=== PATIENT | male | born 1995 | race Caucasian/White ===

== ENCOUNTER 2018-02-02 15:06 | Emergency (ER) | payer BC, SELFPAY ==
[2018-02-02 15:08] VITALS: BP 139/81; PULSE 97; RESP 18; TEMP 37; O2SAT 100; BMI 24.3
--- NOTE | 2018-02-02 17:03 | ED.RN ---
called for pt, no answer.
== END 2018-02-02 17:26 | disposition left against medical advice (07) ==
LOC: ED 17:23
PROVIDERS: Emergency Provider Emergency Medicine; Family Provider Nurse Practitioner Family; PCP Nurse Practitioner Family
DX: L02.91 Cutaneous abscess, unspecified (principal)

== ENCOUNTER 2018-11-24 23:36 | Emergency (ER) | payer SELFPAY ==
[2018-11-24 23:37] VITALS: BP 125/74; PULSE 110; RESP 17; TEMP 36.7; O2SAT 97; BMI 26.5
--- NOTE | 2018-11-25 00:18 | ED.VISSUMM ---
- ER Visit Summary Date of Service: 11/25/18 Chief Complaint: Right hip pain History of Present Illness: The patient is a 23 M who presents with right hip pain. He complains of pain along the side of his right hip. This is worse with palpation. He did take Tylenol yesterday really without significant relief. Pain is been present for 2 days. It is sharp. He denies any fall or injury but does note that he has been moving a lot of stuff. No recent illness. No history of prior similar symptoms. Physical Examination: Afebrile vitals are unremarkable Heart regular rhythm Lungs clear Patient has pain on palpation over the lateral right hip in the area of the trochanteric bursa he has active full range of motion of the hip without pain he has normal sensation distally Test Results: Not indicated Emergency Department Course and Treatment: Patient's presentation is most consistent with trochanteric bursitis. He was advised on supportive care including ice and elevation. He was given a prescription for naproxen. He understands return for new or worsening symptoms all questions answered bedside and patient discharged. Treatment Plan: [] Disposition: Discharge Impression: Trochanteric bursitis This note was generated with [employer] dictation software. It may contain incorrect words, spelling, and punctuation that were not noted in review of the chart prior to signing ED Disposition - Plan for ED Patient: Chief Complaint: Lower Extremity Injury Referrals: NOT,DEFINED [Primary Care Provider] -
--- NOTE | 2018-11-25 00:19 | ED.DEP ---
ED Disposition - Plan for ED Patient: Chief Complaint: Lower Extremity Injury Instructions: What Is Bursitis? Prescriptions: Naproxen [Naprosyn] 500 mg PO BID #14 tab Referrals: NOT,DEFINED [Primary Care Provider] -
[2018-11-25] MEDS: Naproxen 500 MG Tablet PO (00:25)
[2018-11-25 00:26] VITALS: BP 119/86; PULSE 91; RESP 16; O2SAT 98
== END 2018-11-25 01:01 | disposition home or self-care (01) ==
LOC: ED 11-25 01:00
PROVIDERS: Emergency Provider Emergency Medicine
DX: M70.61 Trochanteric bursitis, right hip (principal)
CPT/HCPCS: 99283

== ENCOUNTER 2021-02-11 23:03 | Emergency (ER) | payer SELFPAY ==
[2021-02-11 23:05] VITALS: BP 141/86; PULSE 97; RESP 18; TEMP 36.1; O2SAT 96; BMI 27.7
--- NOTE | 2021-02-11 23:18 | EKG12_ITS ---
Test Reason : ABDOMINAL PAIN Blood Pressure : / mmHG Vent. Rate : 087 BPM Atrial Rate : 087 BPM P-R Int : 170 ms QRS Dur : 090 ms QT Int : 350 ms P-R-T Axes : 063 056 036 degrees QTc Int : 421 ms Normal sinus rhythm with sinus arrhythmia Normal ECG Confirmed by TELLY YEBOAH, INDRA ([id number]), supervising film or videotape editor PRISCILA DAMON ([id number]) on 02/15/2021 9:28:29 AM Referred By: IVONNE Confirmed By:INDRA VARNER MD
--- NOTE | 2021-02-11 23:19 | ED.VIS.GI ---
History of Present Illness Chief Complaint: Abd Pain Informant: Patient - Abdominal Pain/Flank Pain Onset: Today - around 4 hrs ago Context: Gradual Onset - at rest Timing: Continuous Quality: Sharp Location: Epigastric Current Severity: Moderate Maximum Severity: Moderate Worsened by: Nothing Relieved by: Nothing - tried Tylenol and alkaseltzer tabs - Nausea/Vomiting/Emesis GI Symptom: Nausea. Negative for: Vomiting - Diarrhea/Melena/Hematochezia GI Symptom: Negative for: Diarrhea, Melena, Hematochezia Associated Symptoms: Negative for: Dysuria, Frequency, Hematuria, Urgency Narrative: Sharp pain epigastrium for the last 4 hours, radiating up into chest more on the left side. No arm discomfort, back discomfort, no systemic symptoms, pleuritic discomfort, dyspnea, palpitations, dizziness. Has had normal bowel movements lately last 1 was earlier today, no difficulty getting bowel movements now. No difficulty urinating. States he has been taking ibuprofen around twice daily to help nonpleuritic chest discomfort that he had for the last week or 2, now resolved, diagnosed as pleurisy at [facility] when he was there. No melena or bright red blood per rectum, no vomiting but nauseated. Past Medical History - Allergies and Home Meds Allergies/Adverse Reactions: Allergies fluoxetine [From Prozac] Allergy (Verified 02/11/21 23:04) Roseann Primary Care Physician: Care Physician,No Primary [Primary Care Provider] - Surgical History: appendectomy, cholecystectomy Smoking Status: Current every day smoker Review of Systems General: Denies: Chills, Fever, Sweats Eyes: Denies: Visual changes - bilaterally, Diplopia ENT: Denies: Rhinorrhea, Sore throat Cardiovascular: Reports: Chest pain. Denies: Palpitations Respiratory: Denies: Dyspnea, Cough, Dyspnea on exertion Gastrointestinal: Reports: Abdominal pain, Nausea. Denies: Vomiting, Diarrhea, Melena, Hematochezia Genitourinary: Denies: Dysuria, Hematuria, Frequency Musculoskeletal: Denies: Back pain, Swelling, Extremity Pain Skin: Denies: Rash, Wounds Neurological: Denies: Headache, Weakness, Numbness Physical Exam Vital Signs/Narrative: Vital Signs Temp Pulse Resp BP Pulse Ox 02/11/21 23:05 97 F L 97 18 141/86 H 96 General: Well nourished, Well developed, No Acute Distress Head: Normocephalic, Atraumatic Eyes: Perrl, EOMI ENT: Moist mucous membranes, No rhinorrhea Neck: Supple, Nontender Cardiovascular: Regular rate, Regular rhythm, No murmurs Respiratory: No distress, CTA bilaterally, Chest nontender Abdomen: Soft, Nontender, Nondistended, Normal bowel sounds, No masses, Tender - epigastrium only. Negative for: Guarding, Rebound tenderness, Snyder's sign Back: Nontender, Normal Inspection. Negative for: CVA tenderness Extremities: Nontender, No edema. Negative for: Calf Tenderness Skin: Normal color, No rash, No Trauma. Negative for: Jaundice Neurological: Alert, Oriented x3, Cranial nerves II-XII grossly intact, Normal Strength, Normal Sensation, Normal Gait Psychological: Normal affect, Normal Mood Diagnostic/Tx/Re-eval Chest X-Ray - ED: 1 View, Read by ED Physician, Normal, Heart, Lungs, Mediastinum, Bony Structures, No Acute Disease, No Infiltrates 02/11/21 23:59 Chest 1 View (Portable) [RAD] Stat Laboratory Results 02/11/21 02/11/21 00:20 00:20 WBC 8.3 RBC 4.64 Hgb 14.5 Hct 43.8 MCV 94.4 H MCH 31.3 MCHC 33.1 RDW Std Deviation 44.6 H RDW Coeff of Nubia 12.9 Plt Count 237 MPV 10.4 Immature Gran % (Auto) 0.500 Neut % (Auto) 62.2 Lymph % (Auto) 24.8 [place] % (Auto) 9.5 Eos % (Auto) 2.4 Baso % (Auto) 0.6 Absolute Neuts (auto) 5.2 Absolute Lymphs (auto) 2.06 Nucleated RBC % 0 Sodium 140 Potassium 4.0 Chloride 107 Carbon Dioxide 27.0 Anion Gap 6 BUN 17 Creatinine 1.01 Estim Creat Clear Calc 124.16 Est GFR (MDRD) Af Amer 114 Est GFR (MDRD) Non-Af 94 BUN/Creatinine Ratio 16.8 Glucose 83 Calcium 8.8 Total Bilirubin 0.20 AST 50 H ALT 124 H Alkaline Phosphatase 50 Troponin I < 0.015 Total Protein 7.4 Albumin 3.7 Globulin 3.7 Albumin/Globulin Ratio 1.0 Lipase 113 - Rhythm Strip Rhythm Strip: Sinus Rhythm Rate: 87 Ectopy: None - EKG Initial EKG Interpretation: Sinus Rhythm, No Acute Injury Pattern - normal EKG Prior: Unchanged - Medical Decision Making Patient is well-appearing with epigastric pain and tenderness. His work-up shows 2 very slightly elevated liver enzymes, with the ALT twice AST. I asked him about alcohol use, he had some alcohol yesterday, and none other recently. He does not drink often. He has a normal bilirubin, white blood count, and everything else that he measured including his lipase is also normal. We discussed getting a CT but he refuses to have any contrast so we decided not to get one because I think it would be less useful without any contrast. He presents when ultrasound is not available. He had a prior cholecystectomy due to poor function, not stones and he certainly has no evidence of a biliary obstruction. My suspicion is that this is still GI/stomach/intestinal related pains and not necessarily liver, we discussed these possibilities, and other options including follow-up. He does not have a doctor. We gave him GI cocktail and Bentyl, he did not have any major relief from these but he does not have the chest discomfort anymore. He was given Toradol prior to discharge in addition to a prescription for PPI and referred to the next doctor on the unassigned list for follow-up. ED Disposition - Plan for ED Patient: Disposition: Home or Assisted Living Diagnosis: Epigastric abdominal pain Instructions: ED Epigastric Pain (Uncertain Cause) Prescriptions: Pantoprazole Sodium [Protonix] 40 mg PO DAILY #14 tab Prescription Printed Referrals: Bradford Gallardo MD [STAFF PHYSICIAN] - 3-5 Days if not improving
[2021-02-11] MEDS: Pantoprazole Sodium 40 MG Tablet PO (23:31)
[2021-02-11] MEDS: Dicyclomine 10 MG Capsule 20 MG PO (23:31)
[2021-02-11] MEDS: Mag Hydrox/Al Hydrox/Simeth 30 ML UDC PO (23:32)
[2021-02-11] MEDS: Ondansetron 4 MG/2 ML Vial IV (23:32)
--- NOTE | 2021-02-11 23:59 | RAD_ITS ---
STUDY: X-RAY CHEST REASON FOR EXAM: Male, 25 years old. Chest pain. TECHNIQUE: AP portable upright COMPARISON: 05/29/2017 CXR FINDINGS: No apparent pneumothorax, pneumonia, pleural effusion, or edema. Cardiac silhouette, tacos and mediastinal contours are within normal limits. No acute osseous abnormality. No evidence of free air under the diaphragm. RAD/Chest 1 View (Portable) IMPRESSION: Negative chest radiograph. Electronically Signed: Osorio Sanchez MD at 2:01 EDT Tel , Service support ,
[2021-02-12 00:27] LABS: Absolute Lymphocyte Count 2.06 X10^3/uL (0.83-4.51); Absolute Neutrophil Count 5.2 X10^3/uL (2.0-7.7); Basophil# 0.05 X10^3/uL; Basophil% 0.6 % (0-1); Eosinophils% 2.4 % (0-5); Hematocrit 43.8 % (40-54); Hemoglobin 14.5 g/dL (13.0-16.5); Lymphocyte # 2.06 X10^3/ul (4.0); Lymphocyte % 24.8 % (19-41); Mean Corp Hgb Conc 33.1 g/dL (32-36); Mean Corpuscular Hgb 31.3 pg (27.0-32.0); Mean Corpuscular Volume 94.4 fL (80-94); Mean Platelet Vol. 10.4 fl (6.2-12.0); Monocyte# 0.79 X10^3/uL; Monocyte% 9.5 % (0-10); NRBC Flagged by Analyzer 0 % (0-5); Neutrophil # 5.15 X10^3/uL (2.7-7.7); Neutrophil % 62.2 % (47-70); Platelet Count 237 K/mm3 (150-450); RBC Distribution Width CV 12.9 % (11.6-14.6); RBC Distribution Width SD 44.6 fl (35.1-43.9); Red Blood Count 4.64 M/mm3 (4.6-6.2); White Blood Count 8.3 K/mm3 (4.4-11.0)
[2021-02-12 00:46] LABS: AST(SGOT) 50 U/L (15-37); Alanine Aminotransfer ALT/SGPT 124 U/L (16-61); Albumin, Serum 3.7 g/dL (3.2-5.0); Alkaline Phosphatase 50 U/L (45-117); Anion Gap 6 (5-15); BUN 17 mg/dL (7-18); BUN/Creat Ratio 16.8 RATIO (10-20); Calcium,Total 8.8 mg/dL (8.5-10.1); Chloride 107 mmol/L (98-107); Creatinine, Serum 1.01 mg/dL (0.70-1.30); EST Glomerular Filtration Rate 94 mL/min (>60); Est Glom Filt Rate - Afr Amer 114 mL/min (>60); Estimated Creatinine Clearance 124.16 ml/min; Globulin 3.7 g/dL (2.2-4.2); Glucose 83 mg/dL (74-106); Lipase 113 U/L (73-393); Protein, Total 7.4 g/dL (6.4-8.2); Sodium Level 140 mmol/L (136-145)
[2021-02-12] MEDS: Ketorolac 15 MG/ML Vial IV (01:22)
[2021-02-12 01:23] VITALS: PULSE 94; RESP 16; O2SAT 98
[2021-02-12 01:28] VITALS: PULSE 84; RESP 17; TEMP 36.6; O2SAT 98
== END 2021-02-12 01:39 | disposition home or self-care (01) ==
PROVIDERS: Emergency Provider Emergency Medicine
DX: R10.13 Epigastric pain (principal); Z90.49 Acquired absence of other specified parts of digestive tract; F17.200 Nicotine dependence, unspecified, uncomplicated
CPT/HCPCS: 71045; 80053; 83690; 84484; 85025; 93005; 96374; 96375; 99284; A4216; J2405

== ENCOUNTER 2021-11-25 23:44 | Emergency (ER) | payer SELFPAY ==
[2021-11-25 23:45] VITALS: BP 137/86; PULSE 111; RESP 18; TEMP 36.4; O2SAT 94; BMI 28.3
--- NOTE | 2021-11-26 00:15 | ED.VIS.GI ---
HPI HPI - GI History of Present Illness Chief Complaint: Abd Pain Detail of Chief Complaint: Intermittent bilateral upper abdominal pain Informant: patient Abdominal Pain/Flank Pain Onset: Today Context: Sudden Onset Timing: Intermittent Quality: Sharp Location: - (Right and left costal margin region) Current Severity: Moderate Maximum Severity: Severe Worsened by: Nothing Relieved by: Nothing Nausea/Vomiting/Emesis GI Symptom: Positive for Nausea; Negative for Vomiting Quality: Negative for Nonbilious, Blood streaks, Coffee ground and Hematemesis Diarrhea/Melena/Hematochezia GI Symptom: Negative for Diarrhea, Melena and Hematochezia Associated Symptoms Associated Symptoms: Negative for Dysuria, Frequency and Hematuria Narrative Narrative: Patient is a 26-year-old male with history of laparoscopic cholecystectomy by Dr. Wesley Vegas and open appendectomy at outside facility who presents with intermittent bilateral upper abdominal pain that started approximate 1 hour prior to presentation. He states the pain is sharp. He does admit to smoking. He does admit to drinking on weekends. 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 He denies black or maroon-colored stool. He denies mucus or blood in the stool. He denies diarrhea. Denies change in consistency, color or caliber of his stool. He did have an EGD prior to cholecystectomy and was reported as negative. He states he had pain similar but not as severe. There is no history of pancreatitis. He denies respiratory symptoms. He denies radiation of the pain to his back. Prior similar symptoms: Yes Recent Illness/Hospitalization: No PFSH PFSH Medical History no medical history Home Medications buspirone [BuSpar] mg PO BID PRN 11/25/21 [History Last Taken Unknown] Allergy/AdvReac Type Severity Reaction Status Date / Time fluoxetine [From Prozac] Allergy Hives Verified 11/25/21 23:48 Iodinated Contrast Media Allergy Hives Verified 11/25/21 23:48 [DYEE] escitalopram [From Lexapro] AdvReac Other Verified 11/25/21 23:48 Surgical History (Updated 11/26/21 @ 00:[address] Pantera Jung MD) S/P appendectomy Status post laparoscopic cholecystectomy Social History (Updated 11/26/21 @ 00:[address] Pantera Jung MD) household members: significant other Smoking Status: Current every day smoker tobacco type: cigarettes alcohol intake: current alcohol intake frequency: other substance use type: does not use ROS ROS ED Constitutional Constitutional ED: Reports sweats and weight loss; Denies chills, fever(s) or subjective ENT ENT ED: Denies ear pain, rhinorrhea or sore throat Cardiovascular Cardiovascular: Denies chest pain, palpitations or racing heartbeat Respiratory/Chest Respiratory/Chest: Denies cough, dyspnea or dyspnea on exertion Gastrointestinal Gastrointestinal: Reports abdominal pain and nausea; Denies constipation, diarrhea, melena or vomiting Genitourinary Genitourinary ED: Denies dysuria, hematuria or urinary frequency Musculoskeletal Musculoskeletal: Denies arthralgias, back pain, myalgias or neck pain Integumentary Denies rash Neurologic Neurologic: Denies paresthesias or weakness Hematologic/Lymphatic Hematologic/Lymphatic: Denies easy bruising EXAM Physical Exam Const Vital Signs: 11/25/21 23:45 Temperature 97.6 F L Temperature Source Oral Pulse Rate 111 H Respiratory Rate 18 Blood Pressure 137/86 H Blood Pressure Mean 103 Pulse Ox 94 Oxygen Delivery Method Room Air Positive well nourished and well developed General Appearance ED: well developed and NAD; Negative for pallor HEENT Reports moist mucous membranes HEENT Narrative: Trachea midline. Ears are normal. normocephalic and atraumatic Eyes PERRL and EOMs intact bilaterally General Eye ED: Negative for pale conjunctiva or scleral icterus Neck no lymphadenopathy, supple and no JVD Resp normal respiratory effort and clear to auscultation bilaterally Cardio regular rate, regular rhythm, S1 normal heart sound, S2 normal heart sound and no murmurs GI non-distended and no masses Auscultation: normoactive bowel sounds Palpation: soft and tender other (Patient reports tenderness throughout. Scars for port site for cholecystectomy noted and scar for appendectomy noted.); Negative for hepatomegaly, splenomegaly or mass Back/Spine no CVA tenderness Extremity full ROM General Extremety ED: Negative for edema or tenderness General Extremity: Negative for edema Neuro CN's II-XII intact bilaterally and moves all extremities Sensorium / Orientation: alert, oriented to person, oriented to place and oriented to time Psych mental status grossly normal and thought process normal Skin no wounds General Skin Exam: Negative for jaundice or pallor Lesions: no lesions Rashes: no rashes MDM MDM MDM Narrative Medical decision making narrative: Patient presents with upper abdominal pain that started 1 hour prior to presentation. Patient does admit to consuming 2 alcoholic beverages. Of note his eyes are injected. Need to evaluate for abdominal pain of unknown etiology, alcoholic liver disease and pancreatitis. Appropriate blood work was obtained to evaluate for anemia, elevated liver enzymes and pancreatitis. Hep-Lock was placed per nursing staff. I was informed by his nurse at 0052 that he is removing his IV and going home. He refuses the GI cocktail. This occurred after I informed him of his laboratory results and asked/question if he had more than 2 glasses of wine since his alcohol level is 269. He was informed based on his weight that he had more than 2 glasses or 3 glasses of wine. Lab Data Attestation: I reviewed the patient's lab results. Lab results narrative: CBC is unremarkable. Comprehensive metabolic panel is remarkable for an elevated AST and ALT. This is probably due to alcohol.. Lipase is normal. Alcohol is 269, which is much higher than one would expect the patient only had 2 glasses of wine. Labs: Laboratory Results - last 24 hr 11/25/21 11/25/21 11/25/21 23:51 23:51 23:51 WBC 9.0 RBC 5.16 Hgb 15.7 Hct 47.3 MCV 91.7 MCH 30.4 MCHC 33.2 RDW Std Deviation 41.4 RDW Coeff of Nubia 12.3 Plt Count 274 MPV 10.9 Immature Gran % (Auto) 0.800 Neut % (Auto) 58.7 Lymph % (Auto) 30.4 [place] % (Auto) 8.6 Eos % (Auto) 0.8 Baso % (Auto) 0.7 Absolute Neuts (auto) 5.3 Absolute Lymphs (auto) 2.74 Nucleated RBC % 0 Sodium 142 Potassium 3.7 Chloride 110 H Carbon Dioxide 22.0 Anion Gap 10 BUN 9 Creatinine 1.02 Estim Creat Clear Calc 121.85 Est GFR (MDRD) Af Amer 112 Est GFR (MDRD) Non-Af 92 BUN/Creatinine Ratio 8.8 L Glucose 92 Calcium 9.2 Total Bilirubin 0.30 AST 61 H ALT 94 H Alkaline Phosphatase 51 Total Protein 8.4 H Albumin 4.0 Globulin 4.4 H Albumin/Globulin Ratio 0.9 Lipase 67 L Ethyl Alcohol 269.0 Discharge Plan Triage Chief Complaint: Abd Pain ED Provider: ErichPantera Dx/Rx/DC Orders Clinical Impression: Acute alcoholic liver disease, Alcohol intoxication, Acute bilateral upper abdominal pain Instructions: Tests for Liver Disease Prescriptions: No Action buspirone [BuSpar] 5 mg Tablet PO BID PRN (Reason: Anxiety) RF: 0 Primary Care Provider: Care Physician,No Primary Referrals: Ania Perea [NON-STAFF] - 3-5 Days if not improving Care Physician,No Primary [Primary Care Provider] - Disposition Disposition: Home, Self Care
[2021-11-26 00:17] LABS: Absolute Lymphocyte Count 2.74 X10^3/uL (0.83-4.51); Absolute Neutrophil Count 5.3 X10^3/uL (2.0-7.7); Basophil# 0.06 X10^3/uL; Basophil% 0.7 % (0-1); Eosinophil# 0.07 X10^3/uL; Eosinophils% 0.8 % (0-5); Hematocrit 47.3 % (40-54); Hemoglobin 15.7 g/dL (13.0-16.5); Lymphocyte # 2.74 X10^3/ul (0.83-4.51); Lymphocyte % 30.4 % (19-41); Mean Corp Hgb Conc 33.2 g/dL (32-36); Mean Corpuscular Hgb 30.4 pg (27.0-32.0); Mean Corpuscular Volume 91.7 fL (80-94); Mean Platelet Vol. 10.9 fl (6.2-12.0); Monocyte# 0.78 X10^3/uL; Monocyte% 8.6 % (0-10); NRBC Flagged by Analyzer 0 % (0-5); Neutrophil % 58.7 % (47-70); Platelet Count 274 K/mm3 (150-450); RBC Distribution Width CV 12.3 % (11.6-14.6); RBC Distribution Width SD 41.4 fl (35.1-43.9); Red Blood Count 5.16 M/mm3 (4.6-6.2)
[2021-11-26 00:41] LABS: ALB/GLOB Ratio 0.9 RATIO (0.9-2.4); AST(SGOT) 61 U/L (15-37); Alanine Aminotransfer ALT/SGPT 94 U/L (16-61); Alkaline Phosphatase 51 U/L (45-117); Anion Gap 10 (5-15); BUN 9 mg/dL (7-18); BUN/Creat Ratio 8.8 RATIO (10-20); Calcium,Total 9.2 mg/dL (8.5-10.1); Chloride 110 mmol/L (98-107); Creatinine, Serum 1.02 mg/dL (0.70-1.30); EST Glomerular Filtration Rate 92 mL/min (>60); Est Glom Filt Rate - Afr Amer 112 mL/min (>60); Estimated Creatinine Clearance 121.85 ml/min; Globulin 4.4 g/dL (2.2-4.2); Glucose 92 mg/dL (74-106); Lipase 67 U/L (73-393); Potassium 3.7 mmol/L (3.5-5.1); Protein, Total 8.4 g/dL (6.4-8.2); Sodium Level 142 mmol/L (136-145)
--- NOTE | 2021-11-26 00:54 | ED.RN ---
PT REFUSED THE GI COCKTAIL AND STATED,' I NORMALLY LIKE THE DOCTORS HERE ,BUT HE BASICALLY CALLED ME FAT AND I DID NOT DRINK MORE THAN 3 GLASSES OF WINE.' EMPATHY GIVEN AND EXPLAINED TO PT THAT HIS ALCHOL LEVEL IS HIGH AND THERE IS A FORMULA TO DETERMINE QUANITY OF CONSUMPTION.ASSURED HIM THAT THE DOCTOR WAS NOT CALLING HIM FAT WHEN HE WAS DISCUSSING HIS BMI.
[2021-11-26 01:00] VITALS: RESP 16
== END 2021-11-26 01:01 | disposition home or self-care (01) ==
PROVIDERS: Emergency Provider Emergency Medicine; Visit Provider Emergency Medicine
DX: K70.10 Alcoholic hepatitis without ascites (principal); F10.10 Alcohol abuse, uncomplicated; Y90.9 Presence of alcohol in blood, level not specified; F17.210 Nicotine dependence, cigarettes, uncomplicated; Z90.49 Acquired absence of other specified parts of digestive tract
CPT/HCPCS: 80053; 82077; 83690; 85025; 99284; A4216

== ENCOUNTER 2025-08-06 19:36 | Emergency (ER) | payer SELFPAY ==
[2025-08-06 19:38] VITALS: BP 163/94; PULSE 90; RESP 16; TEMP 36.6; O2SAT 100; BMI 28.9
--- NOTE | 2025-08-06 19:42 | CT_ITS ---
PROCEDURE: CT BRAIN/HEAD WITHOUT CONTRAST 08/06/2025 REASON FOR EXAM: NUMBNESS TECHNIQUE: Procedure Code: CTBR Modality: CT Procedure: BRAIN/HEAD WITHOUT CONTRAST Coronal and Sagittal reconstruction series were provided. One or more dose reduction techniques were used (e.g., Automated exposure control, adjustment of the mA and/or kV according to patient size, use of iterative reconstruction technique. RADIATION DOSE SUMMARY: CTDlvol: 44.99 mGy DLP: 829.85 mGycm COMPARISON: None. FINDINGS: No acute intracranial hemorrhage, extra-axial collection, mass effect or evidence of acute infarct. Ventricles and subarachnoid spaces are normal in size. Orbital contents are unremarkable. Intact skull base and calvarium. Clear paranasal sinuses and mastoid air cells. CT/Brain/Head without Contrast IMPRESSION: Unremarkable head CT. Reading Location: [facility]
[2025-08-06 20:39] LABS: Hematocrit 43.3 % (40-54); Hemoglobin 14.8 g/dL (13.0-16.5); Immature Granulocytes Count 0.030 X10^3/uL (0.0-0.0); Mean Corp Hgb Conc 34.2 g/dL (32-36); Mean Corpuscular Volume 95.2 fL (80-94); Mean Platelet Vol. 10.6 fl (6.2-12.0); NRBC Flagged by Analyzer 0 % (0-5); Platelet Count 225 K/mm3 (150-450); RBC Distribution Width CV 11.9 % (11.6-14.6); RBC Distribution Width SD 41.1 fl (35.1-43.9); Red Blood Count 4.55 M/mm3 (4.6-6.2); White Blood Count 8.2 K/mm3 (4.4-11.0)
--- OUTSIDE RECORDS SUMMARY | 2025-08-06 20:50 | XMS RPT_ITS | CCD ---
Author Organization [facility] Care Team Providers Care Pump Mechanic Name Role Phone TRISH WOMACK Unavailable Unavailable PHYSICIAN, NONE Unavailable Unavailable Nazario, Jon W Unavailable Unavailable Nazario, Jon W Unavailable Unavailable No Doctor Assigned, Nodr Unavailable Unavail able [place], Aurelia April Unavailable Unavailab le [place], Aurelia April Unavailable Unavailab le [place], Aurelia April Unavailable Unavailab le Thomae, Jitendra R Unavailable Unavailable [place], Aurelia April Unavailable Unavailab le [place], Aurelia April Unavailable Unavailab le [place], Aurelia April Unavailable Unavailab le [place]ae, Jitendra R Unavailable Unavailable [place], Aurelia April Unavailable Unavailab le [place], Aurelia April Unavailable Unavailab le [place], Aurelia April Unavailable Unavailab le [place], Aurelia April Unavailable Unavailab le [place], Aurelia April Unavailable Unavailab le [place], Aurelia April Unavailable Unavailab le [place], Aurelia April Unavailable Unavailab le Maximsdorf, Daxa A Unavailable Unavailab le [place], Aurelia April Unavailable Unavailab le [place], Aurelia April Unavailable Unavailab le [place], Aurelia April Unavailable Unavailab le [place], Aurelia April Unavailable Unavailab le [place], Aurelia April Unavailable Unavailab le [place], Aurelia April Unavailable Unavailab le [place], Aurelia April Unavailable Unavailab le [place], Aurelia April Unavailable Unavailab le [place], Aurelia April Unavailable Unavailab le [place], Aurelia April Unavailable Unavailab le [place], Aurelia April Unavailable Unavailab le Teo Beckman Unavailable Unavailable Karuna Teo Unavailable Unavailable [place], Aurelia April Unavailable Unavailab le Willett, Zeb Unavailable Unavailable Willett, Zeb Unavailable Unavailable [place], Aurelia April Unavailable Unavailab le Ivanauskas, Saulius Unavailable Unavailable Rachael, Saulius Unavailable Unavailable Kendrick YEBOAH, Dangelo Dexter Unavailable [phone] KINSEY MAZARIEGOS DO Attending Unavailable KINSEY MAZARIEGOS DO Primary Care Unavailable KINSEY MAZARIEGOS DO Admitting Unavailable Allergies Allergy Classification Reported Allergen(s) Allergy Type Date of Onset Reaction(s) Facility (3 sources) FLUoxetine; Translations: [PROzac] Drug Allergy 08-28-2017 [facility] Repository Medications Completed/Discontinued Medications Medication Drug Class(es) Dates Sig (Normalized) Sig (Original) pantoprazole 40 mg delayed release oral tablet (1 source) Proton Pump Inhibitor Start: 09-01-2017 take 1 tablet by mouth once daily PANTOPRAZOLE SODIUM 40 MG TBEC 1 tab daily PO PANTOPRAZOLE SODIUM [id number] Dangelo Marks MD sucralfate 1000 mg oral tablet (1 source) Aluminum Complex Start: 09-01-2017 CARAFATE 1 GM TABS 4 times PO per day, 1 tab before each meal and once before bed SUCRALFATE [id number] Dangelo Marks MD Problems Problem Classification Problem Date Documented Da te Episodic/Chronic Abdominal pain (1 source) Abdominal pain; Translations: [Unspecified abdominal pain] Onset: 08-28-2017 08-28-2017 Episodic Results Test Name Value Interpretation Reference Range Facility CBC + DIFFon 12-23-2024 Baso # 0.02 x10EE3/UL Normal 0.00 - 0.10 [facility] Comment on above: Performed By: #### 2 30732 #### [facility],[address] [place], [place] [id number] Basophils/100 WBC (Bld) 0.2 % Normal 0.0 - 2.0 [facility] Comment on above: Performed By: #### 2 45067 #### [facility],[address] [place] [address]608 CBC + DIFF [facility] Comment on above: Result Comment: CBC- COMPLETE BLOOD COUNT Performed By: #### 2 57927 #### [address] [address] EO # 0.21 x10EE3/UL Normal 0.00 - 0.50 [facility] Comment on above: Performed By: #### 2 71929 #### [place] [address] Eosinophils/100 WBC (Bld) 2.1 % Normal 0.0 - 7.0 [facility] Comment on above: Performed By: #### 2 25964 #### [place] [address] Erythrocyte distribution width (RBC) [Ratio] 12.7 % Normal 12.0 - 15.6 [facility] Comment on above: Performed By: #### 2 63463 #### [place] [address] Hematocrit (Bld) [Volume fraction] 46.7 % Normal 40.0 - 52.0 [facility] Comment on above: Performed By: #### 2 02977 #### [place] [address] Hemoglobin (Bld) [Mass/Vol] 15.7 g/dL Normal 13.0 - 17.5 [facility] Comment on above: Performed By: #### 2 06944 #### [place] [address] Lymph # 2.94 x10EE3/UL High 0.80 - 2.80 [facility] Comment on above: Performed By: #### 2 66192 #### [place] [address] Lymphocytes/100 WBC (Bld) 29.7 % Normal 20.0 - 45.0 [facility] Comment on above: Performed By: #### 2 49170 #### [place] [id number] MANUAL DIFF N/A [facility] Comment on above: Performed By: #### 2 48842 #### [facility],[address] [place] [address] MCH (RBC) [Entitic mass] 32 pg Normal 27 - 33 [facility] Comment on above: Performed By: #### 2 36082 #### [facility],[address] [place] [address] MCHC 34 X10 3 Normal 32 - 36 [facility] Comment on above: Performed By: #### 2 45320 #### [facility],[address] [place] [address] MCV (RBC) [Entitic vol] 95 fL Normal 81 - 98 [facility] Comment on above: Performed By: #### 2 41715 #### [facility],[address] [place] [address] Brantley # 0.98 x10EE3/UL Normal 0.20 - 1.00 [facility] Comment on above: Performed By: #### 2 99704 #### [facility],[address] [place] [address] MONOS % 9.9 % Normal 0.0 - 10.0 [facility] Comment on above: Performed By: #### 2 85156 #### [facility],[address] [place] [address] Morphology Jak (Bld) [Interp] N/A [facility] Comment on above: Performed By: #### 2 81484 #### [facility],[address] [place] [address] Neut # 5.77 x10EE3/UL Normal 1.50 - 7.10 [facility] Comment on above: Performed By: #### 2 60590 #### [facility],[address] [place] [address] Neutrophils/100 WBC (Bld) 58.2 % Normal 46.0 - 76.0 [facility] Comment on above: Performed By: #### 2 90129 #### [facility],[address] [place] [address]31 PLATELET 234 x10EE3/UL Normal 150 - 450 [facility] Comment on above: Performed By: #### 2 65944 #### [facility],[address] [place] [address] 24463 Platelet mean volume (Bld) [Entitic vol] 7.9 fL Normal 6.4 - 10.5 [facility] Comment on above: Result Comment: AUTO MATED DIFFERENTIAL Performed By: #### 2 03158 #### [facility],[address] [place] [address] 13091 RBC 4.93 x 10EE6/UL Normal 4.50 - 6.00 [facility] Comment on above: Performed By: #### 2 05775 #### [facility],[address] [place] [address]235 WBC 9.9 x 10EE3/UL Normal 4.5 - 10.8 [facility] Comment on above: Performed By: #### 2 54052 #### [facility],[address] [place] [address] 52752 CMP with eGFRon 12-23-2024 AGE 29 years [facility] Comment on above: Performed By: #### 2 76730 #### [facility],[address] [place] [address] 21686 Albumin [Mass/Vol] 3.9 g/dL Normal 3.4 - 5.0 [facility] Comment on above: Performed By: #### 2 54300 #### [facility],[address] [place] [address] 10843 Albumin/Globulin [Mass ratio] 1.0 {ratio} Normal 0.9 - 1.6 [facility] Comment on above: Performed By: #### 2 06222 #### [facility],[address] [place] [address] 22940 ALK PHOS 47 U/L Normal 46 - 116 [facility] Comment on above: Performed By: #### 2 21145 #### [facility],[address] [place] [address] 00051 ALT [Catalytic activity/Vol] 121 U/L High 16 - 63 [facility] Comment on above: Performed By: #### 2 76183 #### [facility],[address] [place] [address] 40596 Anion gap [Moles/Vol] 16 mmol/L Normal 10 - 20 [facility] Comment on above: Performed By: #### 2 21557 #### [facility],[address] [place] [address] 93144 AST [Catalytic activity/Vol] 36 U/L Normal 15 - 37 [facility] Comment on above: Performed By: #### 2 73918 #### [facility],[address] [place] [address] 28787 B/C RATIO 12 ratio Normal 0 - 30 [facility] Comment on above: Performed By: #### 2 82054 #### [facility],[address] [place] [address] 77452 Bilirubin [Mass/Vol] 0.5 mg/dL Normal 0.2 - 1.0 [facility] Comment on above: Performed By: #### 2 19533 #### [facility],[address] [place] [address] 02168 Calcium [Mass/Vol] 9.2 mg/dL Normal 8.5 - 10.1 [facility] Comment on above: Performed By: #### 2 42916 #### [facility],[address] [place] [address] 83583 Chloride [Moles/Vol] 102 mmol/L Normal 98 - 107 [facility] Comment on above: Performed By: #### 2 14608 #### [facility],[address] [place] [address] 09709 CMP with eGFR Normal [facility] Comment on above: Result Comment: COMP REHENSIVE METABOLIC PANEL Performed By: #### 2 54947 #### [facility],[address] [place], [place] [address] CO2 [Moles/Vol] 28.0 mmol/L Normal 21.0 - 32.0 [facility] Comment on above: Performed By: #### 2 82351 #### [facility],[address] [place], [place] [address] Creatinine [Mass/Vol] 1.11 mg/dL Normal 0.70 - 1.30 [facility] Comment on above: Performed By: #### 2 02306 #### [facility],[address] [place] [address] GFR/1.73 sq M.predicted among non-blacks MDRD (S/P/Bld) [Vol rate/Area] mL/min/{1.73_m2} Normal 60 - 999 [facility] Comment on above: Performed By: #### 2 81415 #### [facility],[address] [place] [address] Result Comment: ACCO RDING TO THE NATIONAL KIDNEY DISEASE EDUCATION PROGRAM(NKDE), A NORMAL eGFR IS A VALUE GREATER THAN OR EQUAL TO 60 ML/MIN/1.73 SQ METERS. CHRONIC KIDNEY DISEASE: <60mL/MIN/1.73 SQ METERS KIDNEY FAILURE: <15mL/MIN/1.73 SQ METERS THIS TEST SHOULD ONLY BE USED FOR PATIENTS 18 YEARS OF AGE AND OLDER. Globulin (S) [Mass/Vol] 4.0 g/dL High 1.5 - 3.8 [facility] Comment on above: Performed By: #### 2 86458 #### [facility],[address] [place], [place] [address] Glucose [Mass/Vol] 97 mg/dL Normal 74 - 106 [facility] Comment on above: Performed By: #### 2 06735 #### [facility],[address] [place] [address] 67219 Potassium [Moles/Vol] 4.0 mmol/L Normal 3.5 - 5.1 [facility] Comment on above: Performed By: #### 2 38888 #### [facility],[address] [place] [address] 12319 Protein [Mass/Vol] 7.9 g/dL Normal 6.4 - 8.2 [facility] Comment on above: Performed By: #### 2 38761 #### [facility],[address] [place] [address] 16781 Sodium [Moles/Vol] 142 mmol/L Normal 136 - 145 [facility] Comment on above: Performed By: #### 2 34658 #### [facility],[address] [place] [address] 61014 Urea nitrogen [Mass/Vol] 13 mg/dL Normal 7 - 18 [facility] Comment on above: Performed By: #### 2 16912 #### [facility],[address] [place] [address] BRAIN W/O CONTRASTon 0 CT BRAIN W/O CONTRAST [place] [address] Patient: SU LOVING Phone#: : 1995 Age: 29 Gender: M Pt. Type: ER Account: [id number] Location: [facility] Ordering: KINSEY MAZARIEGOS Exam Date: 12/23/2024/2:37 Family Phys: Charge Code: [id number] Physician: Candler Order #: [id number] Dose#: 52.3 PROCEDURE: CT BRAIN WITHOUT CONTRAST COMPARISON: None. INDICATIONS: Headache. TECHNIQUE: CT images were obtained without contrast material. All CT scans at this facility use dose modulation, iterative reconstruction, and/or weight based dosing when appropriate to reduce radiation dose to as low as reasonably achievable. IV CONTRAST: Omnipaque 350,60ml TOTAL DOSE: 52.3 CTDIvol(mGy) FINDINGS: CEREBRUM: No edema, hemorrhage, mass, or inappropriate atrophy. CEREBELLUM: No edema, hemorrhage, mass, or inappropriate atrophy. BRAINSTEM: No edema, hemorrhage, mass, or inappropriate atrophy. CSF SPACES: Ventricles, cisterns, and sulci are appropriate for age. No hydrocephalus, subarachnoid hemorrhage, or mass. SKULL: No mass or other significant visible lesion. SINUSES: Mild mucosal thickening in posterior left ethmoid air cells ORBITS: Limited views are unremarkable. OTHER: Negative. CONCLUSION: 1. No appreciable acute intracranial abnormality. 2. Mild mucosal thickening in posterior left ethmoid air cells Dictated by: Ruth Ann Nelson MD on 12/23/2024 at 9:53 Approved by: Ruth Ann Nelson MD on 12/23/2024 at 9:[address] [facility] [address] NECK W/CONTRASTon 025 CT NECK W/CONTRAST [place] [address] Patient: SU LOVING Phone#: : 1995 Age: 29 Gender: M Pt. Type: ER Account: [id number] Location: [facility] Ordering: KINSEY MAZARIEGOS Exam Date: 12/23/2024/2:37 Family Phys: Charge Code: [id number] Physician: Candler Order #: [id number] Dose#: 9.3 PROCEDURE: CT NECK WITH CONTRAST COMPARISON: None. INDICATIONS: Mass. TECHNIQUE: After obtaining the patient's consent, CT images were created with non-ionic intravenous contrast material. All CT scans at this facility use dose modulation, iterative reconstruction, and/or weight based dosing when appropriate to reduce radiation dose to as low as reasonably achievable. IV CONTRAST: Omnipaque 350,60ml TOTAL DOSE: 9.3 CTDIvol(mGy) FINDINGS: Dental amalgam streak artifact limits evaluation at the involved levels. NASOPHARYNX: Normal. Fossae of Rosenmuller and torus tubarius are symmetric. ORAL CAVITY: Normal. No visible mass. OROPHARYNX: Normal. Faucial and lingual tonsils are symmetric. HYPOPHARYNX: Normal. No mass or other visible lesion. LARYNX: Normal. The vocal cords are symmetric and without mass. SINUSES: Mucosal thickening in left posterior ethmoid air cell. Mild leftward deviation of the nasal septum. NECK GLANDS: Normal. The parotid, submandibular, and thyroid glands are unremarkable. LYMPH NODES: Normal. No pathological-appearing or enlarged lymph nodes. SKULL BASE: Normal. Foramina are symmetric without bony erosion. VASCULATURE: Normal. Limited views are unremarkable. BONES: Normal. No significant osseous lesions. OTHER: Normal. No additional imaging findings. CONCLUSION: 1. No mass, adenopathy, or fluid collection. Dictated by: Ruth Ann Nelson MD on 12/23/2024 at 9:58 Continued Report - Page 2 of 2 Patient: SU LOVING Phone#: : 1995 Age: 29 Gender: M Pt. Type: ER Account: [id number] Location: [facility] Ordering: KINSEY MAZARIEGOS Exam Date: 12/23/2024/2:37 Family Phys: Charge Code: [id number] Physician: [place]ler Order #: [id number] Dose#: 9.3 Approved by: Ruth Ann Nelson MD on 12/23/2024 at 10:12 [facility] ED MED ADMINISTRATION DETAIL on 12-23-2024 ED MED ADMINISTRATION DETAIL Supervisor Money Room Medication Administration Record [address] [address] [id number] 12/22/2024 Patient: SU LOVING Sex: Male : 1995 Age: 29y MEASUREMENTS: Wt: 90.7 kg, Ht/Paresh: 72.0 in, BMI: 27.12 ALLERGIES: Prozac Medication Ordered Medication Administration Date/Time Clindamycin IVPB 03:14 0206 Clindamycin IVPB 600mg/50ml Premix 600 mg started Started 600mg/50ml Premix at 100 mL/hr over 30 minute(s) via Site# 1. Allergies verified and 03:14 12/23/2024 600 mg at 100 confirmed 5 rights. IV patency established. IV site checked: no pain, Lakisha Rutt, R.N. mL/hr (NOW x1) redness, or swelling. IV flushed thoroughly pre-medication Stopped administration. Information reviewed with patient including reason 03:39 12/23/2024 for taking this medication. Verbalizes understanding. Completed per Lakisha Eckert R.N. protocol. - 03:15 Lakisha Eckert R.N. Scanned 03:39 02 Medication Discontinued: IV infused. Total amount infused: 100 mL. IV patency established. IV site checked: no pain, redness, or swelling. IV flushed thoroughly post-medication administration. - 04:04 Lakisha Eckert R.N. 1 of 2 Supervisor Money Room Medication Ordered Medication Administration Date/Time IV NS 0.9 % 1000 03:13 12/23 IV NS 0.9 % 1000 mL started in bag#1 1000 mL at Started mL at 999 mL/hr 999 mL/hr over 1 hour(s) via Site# 1. Allergies verified and 03:13 12/23/2024 (NOW x1) confirmed 5 rights. IV patency established. IV site checked: no pain, Lakisha Eckert R.N. redness, or swelling. IV flushed thoroughly pre-medication Stopped administration. Information reviewed with patient. Verbalizes 03:50 12/23/2024 understanding. Completed per protocol. - 03:14 Jenaro Odom R.N. Scanned 03:50 0206 Medication Discontinued: bag #1 infused upon discharge. Total amount infused: 1000 mL. IV patency established. IV site checked: no pain, redness, or swelling. IV flushed thoroughly post-medication administration. - 04:05 Lakisha Eckert R.N. Acetaminophen 03:33 12/23 Acetaminophen (Tylenol) PO 975 mg given. Allergies Given (Tylenol) PO 975 verified and confirmed 5 rights. Information reviewed with patient. 03:33 12/23/2024 mg (NOW x1) Verbalizes understanding. - 03:33 Jenaro Odom R.N. Scanned 04:05 12/23 Medication Response: Pain is improving. Symptoms have improved. The patient feels better. - 04:05 Lakisha Eckert R.N. 2 of 2 [facility] ED NURSES CLINICAL NOTEon ED NURSES CLINICAL NOTE Nurse Narrative Nurse Clinical Narrative [facility] [address] [place] [id number] 12/22/2024 Patient: SU LOVING Sex: Male : 1995 Age: 29y Disposition: Discharge to Home Disposition Decision Time: 03:47 12/23/2024 Departure Time: 04:21 12/23/2024 TRIAGE Arrived by private vehicle. Historian: (patient). Triage time: 23:29 12/22/2024. Acuity: LEVEL 3. Chief Complaint: SORE THROAT, TOOTHACHE and CHIPPED TOOTH and SWELLING OF JAW / FACE. Onset. (1 weeks ago). The patient has no dental appointment scheduled. The patient has had facial pain and ear pain. No fever, trouble handling secretions or sinus pain. The patient has had swelling of the face and a toothache. -- 23:46 12/22/24 JOE Branham R.N. 23:42 12/22/24. BP: 155/103 MAP: 120. HR: 70. RR: 18. Regular. O2 saturation: 95% Temperature: 99.2 F. Pain level now 6/10. Describes the pain as aching. -- 23:43 12/22/24 JOE Branham R.N. 23:47 12/22/24. SEPSIS SCREEN: NEGATIVE. SIRS criteria negative. No possible sources of infection. -- 23:47 12/22/24 JOE Branham R.N. Measurements: 23:40 12/22/24 Wt: 90.7 kg, Ht/Paresh: 72.0 in, BMI: 27.12 -- 23:40 12/22/24 JOE Branham R.N. Medications: no known home medications -- 04:00 12/23/24 EST Lakisha Eckert R.N. 1 of 4 Nurse Narrative Allergies: Prozac -- 23:45 12/22/24 JOE Branham R.N. Problems: no known problem -- 23:38 12/22/24 JOE Branham R.N. ADDITIONAL SURGERIES: Appendectomy -- 23:38 12/22/24 JOE Branham R.N. Gallbladder Surgery -- 23:45 12/22/24 JOE Branham R.N. History 23:29 12/22/24. SOCIAL HX: Light tobacco smoker- less than 1/2 a pack per day. Alcohol use; consumes two beers a week. No drug use. The patient has not traveled outside the [place] Infectious disease exposure: No infectious disease exposure. ABUSE ASSESSMENT: The patient answered yes to the question(s) Do you feel safe in your home? and no to the question(s) Are you afraid to go home?. SELF HARM ASSESSMENT: Self harm assessment was performed. The patient answered no to the question(s) Have you recently felt down, depressed, or hopeless? and Do you have thoughts of harming or killing yourself?. FALL RISK ASSESSMENT: Fall risk assessment completed. No risk factors identified. -- 23:46 12/22/24 JOE Branham R.N. Interventions 23:29 12/22/24. Advanced care plan. Patient does not have advanced directive. -- 23:46 12/22/24 JOE Branham R.N. PHYSICAL ASSESSMENT 2 of 4 Nurse Narrative 03:37 12/23/24. GENERAL / NEURO / PSYCH: Alert. Oriented X 4. Appears in no acute distress. HEENT: Voice within normal limits. Mouth within normal limits upon inspection. Moderate dental tenderness of a single tooth (left lower molar). ( Tooth is chipped and has been that way for quite awhile' per pt). Mucous membranes are pink. RESPIRATORY: Respirations not labored. CVS: Capillary refill less than 2 seconds. SKIN: Skin is warm and dry. Normal skin turgor. -- 04:02 12/23/24 JOE Eckert R.N. NURSING PROGRESS NOTES 02:39 12/23/24. Patient walked to CT with bioprocessing manufacturing technician. -- 02:54 12/23/24 JOE Eckert R.N. 02:49 12/23/24. Patient walked back from CT with bioprocessing manufacturing technician. -- 02:54 12/23/24 JOE Eckert R.N. 02:58 12/23/24. Site #1 started via IV in the right antecubital space with an 18g angiocath with aseptic technique and good blood return; 1 attempt. Blood drawn: rainbow set tube(s). Labeled in the presence of the patient and sent to the lab. Saline lock flushed with 5 mL saline. -- 03:08 12/23/24 JOE Eckert R.N. 03:13 12/23/24. IV NS 0.9 % 1000 mL started in bag#1 1000 mL at 999 mL/hr over 1 hour(s) via Site# 1. Allergies verified and confirmed 5 rights. IV patency established. IV site checked: no pain, redness, or swelling. IV flushed thoroughly pre-medication administration. Information reviewed with patient. Verbalizes understanding. Completed per protocol. -- 03:14 12/23/24 JOE Eckert R.N. 03:14 12/23/24. Clindamycin IVPB 600mg/50ml Premix 600 mg started at 100 mL/hr over 30 minute(s) via Site# 1. Allergies verified and confirmed 5 rights. IV patency established. IV site checked: no pain, redness, or swelling. IV flushed thoroughly pre-medication administration. Information reviewed with patient including reason for taking this medication. Verbalizes understanding. Completed per protocol. -- 03:15 12/23/24 JOE Eckert R.N. 03:33 12/23/24. Acetaminophen (Tylenol) PO 975 mg given. Allergies verified and confirmed 5 rights. Information reviewed with patient. Verbalizes understanding. -- 03:33 12/23/24 JOE Eckret R.N. 03:39 12/23/24. Clindamycin IVPB 600mg/50ml Premix: Medication Discontinued. IV infused. Total amount infused: 100 mL. IV patency established. IV s (more content not included)... [facility] ED ORDER SHEET ([facility] ONLY)on 12-23-2024 ED ORDER SHEET ([facility] ONLY) Order Sheet Order Sheet [address] [place] [address] [id number] 12/22/2024 Patient: SU LOVNIG Sex: Male : 1995 Age: 29y MEASUREMENTS: Wt: 90.7 kg, Ht/Paresh: 72.0 in, BMI: 27.12 ALLERGIES: Prozac MEDICATION/IV/DRIP/FLUI D ORDERS Order Description Priority Entered Acknowledged Completed Clindamycin IVPB 600mg/50ml 02:14 12/23/2024 02:28 03:15 [id number] mg at 100 mL/hr Kinsey Mazariegos D.O. 12/23/2024 12/23/2024 (NOW x1) Jenaro Odom R.N. IV NS 0.9 %1000 mL at 999 02:15 12/23/2024 02:28 03:14 mL/hr (NOW x1) Kinsey Mazariegos D.O. 12/23/2024 12/23/2024 Jenaro Odom R.N. Acetaminophen (Tylenol) 03:30 12/23/2024 03:30 03:33 PO975 mg (NOW x1) Kinsey Mazariegos D.O. 12/23/2024 12/23/2024 Jenaro Odom, R.NMissael LAB ORDERS Order Description Priority Entered Acknowledged Collected Completed CBC w Diff Stat Stat 02:12 12/23/2024 02:27 12/23/2024 02:28 12/23/2024 Shaunna Bryant R.N. Anne Rutt, R.N. CMP Stat Stat 02:12 12/23/2024 02:27 12/23/2024 02:28 12/23/2024 1 of 3 Order Sheet Shaunna Bryant R.N. Anne Rutt, R.NMissael EKG - ED Stat Stat 02:12 12/23/2024 02:27 12/23/2024 03:14 12/23/2024 Shaunna Bryant R.N. Anne Rutt R.NMissael Troponin-I Stat Stat 02:12 12/23/2024 02:27 12/23/2024 02:28 12/23/2024 Shaunna Bryant R.N. Anne Rutt, R.NMissael DIAGNOSTIC STUDY ORDERS Order Description Priority Entered Acknowledged Completed CT Brain wo Cont Stat Stat 02:13 12/23/2024 02:28 02:55 Kinsey Mazariegos D.O. 12/23/2024 12/23/2024 Jenaro Odom, Jenaro Reason for Study: Headache CT Soft Tissue Neck w Cont Stat 02:13 12/23/2024 02:28 02:55 Stat Kinsey Mazariegos D.O. 12/23/2024 12/23/2024 Jenaro Odom R.N. Reason for Study: Mass STAFF ORDERS Order Description Priority Entered Acknowledged Collected Completed Oxygen titrate to 92% 02:12 12/23/2024 02:27 12/23/2024 02:28 12/23/2024 Shaunna Bryant R.N. Anne Rutt, R.N. Radiator Mechanic 02:12 12/23/2024 02:27 12/23/2024 02:28 12/23/2024 Shaunna Bryant R.N. Anne Rutt, R.N. Vital signs every 15 02:12 12/23/2024 02:27 12/23/2024 02:28 12/23/2024 minutes Shaunna Bryant R.N. Anne Rutt, R.N. 2 of 3 Order Sheet [Electronically signed by Kinsey Mazariegos D.O. (12/23/2024 05:10 EST)] 3 of 3 [facility] ED PHYSICIAN CLINICAL REPORT on 12-23-2024 ED PHYSICIAN CLINICAL REPORT Narrative Physician Clinical Narrative [address] [address] [id number] 12/22/2024 Patient: SU LOVING Sex: Male : 1995 Age: 29y Disposition: Discharge to Home Disposition Decision Time: 03:47 12/23/2024 Departure Time: 04:21 12/23/2024 Measurements Wt: 90.7 kg, Ht/Paresh: 72.0 in, BMI: 27.12 Initial Vital Sign Measured Time BP MAP HR RR O2Sat ETCO2 Temp Pain GCS RTS 23:42 12/22/2024 155/103 120 70 18 95% 99.2 F 6 Time Seen: 01:42 12/23/2024. Arrived- By private vehicle. Historian- patient. Independent historian- family. HISTORY OF PRESENT ILLNESS Chief Complaint: DENTAL PAIN. This started yesterday and is still present (worse). Pain described as moderate. The patient has had a sore throat, toothache, jaw pain and ear pain. No mouth sores, nasal discharge or congestion or swollen jaw or face. No facial pain. (Complains of bilateral neck pain worse on the left today which became quite severe. Also complains of a throbbing headache. Feels like his throat is closing off. Shortness of breath earlier but not now. He did have some chest pain tonight from 7:30 p.m. to about 10:30 p.m.. Pain-free now. His left arm and is left leg were tingly at that time but that also happens with his anxiety attacks.). Similar symptoms previously. Patient has had similar symptoms several times. 1 of 10 Narrative Recent medical care: Not recently seen/assessed. REVIEW OF SYSTEMS EYES: No eye discomfort. MUSCULOSKELETAL: No joint pain. NEUROLOGICAL: The patient has had a headache. No fainting episodes. RESPIRATORY: No cough. The patient has had difficulty breathing. CVS: The patient has had chest pain. ENDO/HEME/LYMPH: No enlarged lymph nodes. CONSTITUTIONAL: No fever. GI: No nausea, diarrhea, abdominal pain or vomiting. SKIN: No skin rash. PAST HISTORY See nurses notes. no known problem Surgeries: Appendectomy Gallbladder Surgery Medications: no known home medications Allergies: Prozac SOCIAL HISTORY Heavy tobacco smoker- 1 pack per day. Occasional alcohol use. No drug use. ADDITIONAL NOTES The nursing notes have been reviewed. PHYSICAL EXAM Appearance: Alert. No acute distress. Head: Normal external inspection. Eyes: Pupils equal, round and reactive to light. 2 of 10 Narrative ENT: Moderate dental decay (lower left third molar). Dental tenderness. Pharynx normal. Lips normal. Gums normal. Uvula midline. (Left lower most posterior molar has a large section of the tooth broken off. The surrounding gum is mildly erythematous. I do not see any dental abscess. No drooling. No facial swelling noted.). Neck: Trachea midline. No adenopathy. (Neck is tender anteriorly along the left anterior cervical chain. I do not note any cervical lymphadenopathy. No skin redness or warmth. No crepitance or subcu emphysema.). CVS: Normal heart rate and rhythm. Heart sounds normal. Pulses normal. Respiratory: No respiratory distress. Breath sounds normal. Chest nontender. Abdomen: Soft and nontender. No organomegaly. Skin: Normal skin color. No rash. Extremities: Extremities exhibit normal ROM. Extremities nontender. Neuro: Oriented X 3. No motor deficit. No sensory deficit. LABS, X-RAYS, AND EKG 12-LEAD EKG: EKG time: 03:12 12/23/2024. Normal sinus rhythm. Rate: 64. Normal P waves. Normal QRS complex. Normal ST and T waves. The study has been interpreted contemporaneously by me. The EKG appears to be a good tracing. Interpretation time: 03:14 12/23/2024. CT Neck - Soft Tissue: No acute disease. (No focal airspace disease within the lung apices. The thyroid gland enhances homogeneous sleep. The submandibular glands are symmetric and unremarkable. Parotid glands appear very symmetric and unremarkable. There is mild leftward nasal septal deviation. Mild mucosal thickening is noted within the posterior ethmoid air cells. No parapharyngeal mass. No parapharyngeal abscess.). The study was interpreted by the radiologist. Interpretation time: 03:28 12/23/2024. CT Head: Normal study. No acute disease. (Brain volume is normal for age. No acute intracranial hemorrhage. No acute territorial infarct. No extra-axial collection of fluid is identified. No shift of midline structures. No acute calvarial fracture. Visualized mastoid air cells are clear. Minimal mucosal thickening noted within the posterior left ethmoid air cells.). The study was interpreted by the radiologist. Interpretation time: 03:29 12/23/2024. Laboratory Tests: CBC + DIFF Final LO: 12/23/2024 02:39:00 EST MsgRcvd: 12/23/2024 03:00 EST Lab Test Result Reference Status Received Comments 12/23/2024 03:00 CBC-COMPLETE CBC + DIFF Final EST BLOOD COUNT 3 of 10 Narrative Lab Test Result Reference Status Received Comments 12/23/2024 03:0 (more content not included)... [facility] ED SUPER BILLon 12-23-2024 ED SUPER BILL Superbill [address] [address] [id number] 12/22/2024 Patient: SU LOVING Sex: Male : 1995 Age: 29y Facility Professional Category Item Description Code Code Quantity Fee Total Drugs Normal Saline 545607 1 $0.00 $0.00 1000cc (376069) Nurse/E/M EMERGENCY 437883 1 $0.00 $0.00 DEPT VISIT HIGH SEVERITYFUNCJ (92502-14) Nurse/IV/IM/Infusions Drip/IVPB initial 440392 1 $0.00 $0.00 (73197) Grand $0.00 Total Providers Kinsey Mazariegos D.O. Chief Complaint DENTAL PAIN. Principal Diagnosis 1 of 2 Superbill Moderate dental pain. Dental caries. (Dental infection.). ICD-10 Codes K08.89: Other specified disorders of teeth and supporting structures K02.9: Dental caries, unspecified 2 of 2 [facility] ED VISIT SUMMARYon ED VISIT SUMMARY Visit Overview Visit Overview [address] [address] [id number] 12/22/2024 Patient: SU LOVING Sex: Male : 1995 Age: 29y 12/23/2024 05:10 AM EST ED Arrival:22:44 12/22/2024 EST Status: Recent Travel:no Language:eng Adv Directive:No Isolation Status: Ethnicity:N Fall Risk:no risk Infectious Disease Exposure:no Measurements:6' / 182.9 Self-Harm Status:risk Sepsis Screen:negative cm 200.0 lb / 90.7 kg Chief Complaint: TOOTHACHE, CHIPPED TOOTH, SORE THROAT, SWELLING OF JAW / FACE, and (1 weeks ago) ALLERGIES Prozac HOME MEDICATIONS None PAST MEDICAL HISTORY / PROBLEMS None 1 of 3 Visit Overview See nurses notes PAST SURGICAL HISTORY Appendectomy Gallbladder Surgery SOCIAL HISTORY Smoking status: Yes Alcohol use: Yes Drug use: No ED COURSE MEDICATIONS GIVEN IN EMERGENCY DEPARTMENT 03:13 12/23/24 IV NS 0.9 % 1000 mL 999 mL/hr over 1 hour(s) 03:14 12/23/24 Clindamycin IVPB 600mg/50ml Premix 600 mg 100 mL/hr over 30 minute(s) 03:33 12/23/24 Acetaminophen (Tylenol) PO 975 mg IV SITE INFORMATION INTAKE OUTPUT REASSESMENT (most recent) 03:37 12/23/24. GENERAL / NEURO / PSYCH: Alert. Oriented X 4. Appears in no acute distress. HEENT: Voice within normal limits. Mouth within normal limits upon inspection. Moderate dental tenderness of a single tooth (left lower molar). ( Tooth is chipped and has been that way for quite awhile' per pt). Mucous membranes are pink. RESPIRATORY: Respirations not labored. CVS: Capillary refill less than 2 seconds. SKIN: Skin is warm and dry. Normal skin turgor. VITAL SIGNS First Vitals Last Vitals Temp 23:42 12/22/24 99.2 F Temp 23:42 12/22/24 99.2 F BP 23:42 12/22/24 155/103 BP 23:42 12/22/24 155/103 HR 23:42 12/22/24 70 HR 23:42 12/22/24 70 2 of 3 Visit Overview First Vitals Last Vitals RR 23:42 12/22/24 18 RR 23:42 12/22/24 18 O2 Sat 23:42 12/22/24 95% O2 Sat 23:42 12/22/24 95% Pain 23:42 12/22/24 6 Pain 23:42 12/22/24 6 ETCO2 23:42 12/22/24 ETCO2 23:42 12/22/24 GCS 23:42 12/22/24 GCS 23:42 12/22/24 RTS 23:42 12/22/24 RTS 23:42 12/22/24 PROCEDURES NURSING INTERVENTIONS LABS / STUDIES LABS / STUDIES ORDERED CBC w Diff CMP CT Brain wo Cont CT Soft Tissue Neck w Cont EKG - ED Troponin-I CLINICAL IMPRESSION DENTAL CARIES MODERATE DENTAL PAIN 3 of 3 [facility] ED VITALS FLOW SHEETon 12-23 ED VITALS FLOW SHEET Vitals Vital Sign Flow Sheet [facility] [address] [place] [address] [id number] 12/22/2024 Patient: SU LOVING [facility]#: [id number] Sex: Male : 1995 Age: 29y Measurements Wt: 90.7 kg, Ht/Paresh: 72.0 in, BMI: 27.12 Measured Time BP MAP HR RR O2Sat ETCO2 Temp Pain GCS RTS 23:42 12/22/2024 155/103 120 70 18 95% 99.2 F 6 1 of 1 [facility] TROPONINon 12-23-2024 HS TROPONIN 4.4 pg/mL Normal 0.0 - 76.2 [facility] Comment on above: Performed By: #### 2 [id number] #### [facility],[address] [address] Alcohol, Blood (Medical)-Ser umon 11-26-2021 SERUM ETOH 269.0 mg/dL Normal [facility] Comment on above: Result Comment: The serum:whole blood ethanol ratio is approximately 1.14 and varies slightly with hematocrit. Medical Alcohol reference interval and critical value in non-tolerant individuals; 50 - 100 Impairment 100 Intoxication 100 - 250 Severe Poisoning 250 - 400 Deep/possible fatal coma Performed By: #### L 100.0100, L501.2450, L500.4050, L501.9100 #### [facility] [address] [place], [address] CBC W/Diff, Automatedon 11-17 Absolute Lymph 2.74 X10 3/uL Normal 0.83-4.51 [facility] Comment on above: Performed By: #### L 100.0100, L501.2450, L500.4050, L501.9100 #### [facility] [address] [place], [address] Absolute Neut 5.3 X10 3/uL Normal 2.0-7.7 [facility] Comment on above: Performed By: #### L 100.0100, L501.2450, L500.4050, L501.9100 #### [facility] [address] [place], [address] Basophils/100 WBC (Bld) 0.7 % Normal 0-1 [facility] Comment on above: Performed By: #### L 100.0100, L501.2450, L500.4050, L501.9100 #### [facility] [address] [place], [address] Eosinophils/100 WBC (Bld) 0.8 % Normal 0-5 [facility] Comment on above: Performed By: #### L 100.0100, L501.2450, L500.4050, L501.9100 #### [facility] [address] [place], [address] Erythrocyte distribution width (RBC) [Ratio] 12.3 % Normal 11.6-14.6 [facility] Comment on above: Performed By: #### L 100.0100, L501.2450, L500.4050, L501.9100 #### [facility] [address] [place], [address] Hematocrit (Bld) [Volume fraction] 47.3 % Normal 40-54 [facility] Comment on above: Performed By: #### L 100.0100, L501.2450, L500.4050, L501.9100 #### [facility] [address] [place], [address] Hemoglobin (Bld) [Mass/Vol] 15.7 g/dL Normal 13.0-16.5 [facility] Comment on above: Performed By: #### L 100.0100, L501.2450, L500.4050, L501.9100 #### [facility] [address] [place], [address] IG% 0.800 Normal 0.0-0.9 [facility] Comment on above: Result Comment: IG% - Immature Granulocytes (promyelocytes, myelocytes and metamyelocytes) > 1% indicates that a LEFT SHIFT is Present. Performed By: #### L 100.0100, L501.2450, L500.4050, L501.9100 #### [facility] [address] [place], [address] Lymphocytes/100 WBC (Bld) 30.4 % Normal 19-41 [facility] Comment on above: Performed By: #### L 100.0100, L501.2450, L500.4050, L501.9100 #### [facility] [address] [place], [address] MCH (RBC) [Entitic mass] 30.4 pg Normal 27.0-32.0 [facility] Comment on above: Performed By: #### L 100.0100, L501.2450, L500.4050, L501.9100 #### [facility] [address] [place], [address] MCHC (RBC) [Mass/Vol] 33.2 g/dL Normal 32-36 [facility] Comment on above: Performed By: #### L 100.0100, L501.2450, L500.4050, L501.9100 #### [facility] [address] [place], [address] MCV (RBC) [Entitic vol] 91.7 fL Normal 80-94 [facility] Comment on above: Performed By: #### L 100.0100, L501.2450, L500.4050, L501.9100 #### [facility] [address] [place], [address] Monocytes/100 WBC (Bld) 8.6 % Normal 0-10 [facility] Comment on above: Performed By: #### L 100.0100, L501.2450, L500.4050, L501.9100 #### [facility] [address] [place], [address] Neutrophils/100 WBC (Bld) 58.7 % Normal 47-70 [facility] Comment on above: Performed By: #### L 100.0100, L501.2450, L500.4050, L501.9100 #### [facility] [address] [place], [address] Nucleated RBC (Bld) [#/Vol] 0 10*3/uL Normal 0-5 [facility] Comment on above: Performed By: #### L 100.0100, L501.2450, L500.4050, L501.9100 #### [facility] [address] [place], [address] Platelet mean volume (Bld) [Entitic vol] 10.9 fL Normal 6.2-12.0 [facility] Comment on above: Performed By: #### L 100.0100, L501.2450, L500.4050, L501.9100 #### [facility] [address] [place], [address] Platelets (Bld) [#/Vol] 274 10*3/uL Normal 150-450 [facility] Comment on above: Performed By: #### L 100.0100, L501.2450, L500.4050, L501.9100 #### [facility] [address] [place], [address] RBC (Bld) [#/Vol] 5.16 10*6/uL Normal 4.6-6.2 [facility] Comment on above: Performed By: #### L 100.0100, L501.2450, L500.4050, L501.9100 #### [facility] [address] [place], [address] RDW SD 41.4 fl Normal 35.1-43.9 [facility] Comment on above: Performed By: #### L 100.0100, L501.2450, L500.4050, L501.9100 #### [facility] [address] [place], [address] WBC (Bld) [#/Vol] 9.0 10*3/uL Normal 4.4-11.0 [facility] Comment on above: Performed By: #### L 100.0100, L501.2450, L500.4050, L501.9100 #### [facility] [address] [place], [address] Comprehensive Metabolic Prof ilon 11-26-2021 Albumin [Mass/Vol] 4.0 g/dL Normal 3.2-5.0 [facility] Comment on above: Performed By: #### L 100.0100, L501.2450, L500.4050, L501.9100 #### [facility] [address] [place], [address] Albumin/Globulin [Mass ratio] 0.9 {ratio} Normal 0.9-2.4 [facility] Comment on above: Performed By: #### L 100.0100, L501.2450, L500.4050, L501.9100 #### [facility] [address] [place], [address] ALK P 51 U/L Normal 45-117 [facility] Comment on above: Performed By: #### L 100.0100, L501.2450, L500.4050, L501.9100 #### [facility] [address] [place], [address] ALT [Catalytic activity/Vol] 94 U/L High 16-61 [facility] Comment on above: Performed By: #### L 100.0100, L501.2450, L500.4050, L501.9100 #### [facility] [address] [place], [address] AST [Catalytic activity/Vol] 61 U/L High 15-37 [facility] Comment on above: Performed By: #### L 100.0100, L501.2450, L500.4050, L501.9100 #### [facility] [address] [place], [address] Bilirubin [Mass/Vol] 0.30 mg/dL Normal 0.20-1.00 [facility] Comment on above: Result Comment: For patients on eltrombopag therapy, use of Dimension Alpine TBIL is not recommended. Performed By: #### L 100.0100, L501.2450, L500.4050, L501.9100 #### [facility] [address] [place], [address] BUN/CRE 8.8 RATIO Low 10-20 [facility] Comment on above: Performed By: #### L 100.0100, L501.2450, L500.4050, L501.9100 #### [facility] [address] [place], [address] CA,Total 9.2 mg/dL Normal 8.5-10.1 [facility] Comment on above: Performed By: #### L 100.0100, L501.2450, L500.4050, L501.9100 #### [facility] [address] [place], [address] Chloride [Moles/Vol] 110 mmol/L High 98-107 [facility] Comment on above: Performed By: #### L 100.0100, L501.2450, L500.4050, L501.9100 #### [facility] [address] [place], [address] CO2 [Moles/Vol] 22.0 mmol/L Normal 21.0-32.0 [facility] Comment on above: Performed By: #### L 100.0100, L501.2450, L500.4050, L501.9100 #### [facility] [address] [place], [address] Creatinine [Mass/Vol] 1.02 mg/dL Normal 0.70-1.30 [facility] Comment on above: Result Comment: The validity of the calculated GFR GFRAA in patients over 70 years has not been determined. Clinical correlation is essential. Performed By: #### L 100.0100, L501.2450, L500.4050, L501.9100 #### [facility] [address] [place], [address] ECRCL 121.85 ml/min Normal [facility] Comment on above: Performed By: #### L 100.0100, L501.2450, L500.4050, L501.9100 #### [facility] [address] [place], [address] EST GFR - AA 112 mL/min Normal >60 [facility] Comment on above: Result Comment: Afri can [place] GFR Calc Performed By: #### L 100.0100, L501.2450, L500.4050, L501.9100 #### [facility] [address] [place], [address] GAP 10 Normal 5-15 [facility] Comment on above: Performed By: #### L 100.0100, L501.2450, L500.4050, L501.9100 #### [facility] [address] [place], [address] GFR/1.73 sq M.predicted among non-blacks MDRD (S/P/Bld) [Vol rate/Area] 92 mL/min/{1.73_m2} Normal >60 [facility] Comment on above: Result Comment: Non- GFR Calc Performed By: #### L 100.0100, L501.2450, L500.4050, L501.9100 #### [facility] [address] [place], [address] Globulin (S) [Mass/Vol] 4.4 g/dL High 2.2-4.2 [facility] Comment on above: Performed By: #### L 100.0100, L501.2450, L500.4050, L501.9100 #### [facility] [address] [place], [address] Glucose [Mass/Vol] 92 mg/dL Normal 74-106 [facility] Comment on above: Result Comment: Mervat ferrari note revised GLUCOSE reference range effective 2017. Performed By: #### L 100.0100, L501.2450, L500.4050, L501.9100 #### [facility] [address] [place], [address] Potassium [Moles/Vol] 3.7 mmol/L Normal 3.5-5.1 [facility] Comment on above: Performed By: #### L 100.0100, L501.2450, L500.4050, L501.9100 #### [facility] [address] [place], [address] Sodium [Moles/Vol] 142 mmol/L Normal 136-145 [facility] Comment on above: Performed By: #### L 100.0100, L501.2450, L500.4050, L501.9100 #### [facility] [address] [place], [address] T PROT 8.4 g/dL High 6.4-8.2 [facility] Comment on above: Performed By: #### L 100.0100, L501.2450, L500.4050, L501.9100 #### [facility] [address] [place], [address] Urea nitrogen [Mass/Vol] 9 mg/dL Normal 7-18 [facility] Comment on above: Performed By: #### L 100.0100, L501.2450, L500.4050, L501.9100 #### [facility] [address] [place], [address] Emergency Department Summary on 11-26-2021 Emergency Department Summary [facility] Medical Records Department [address] [place] [address] Emergency Department Summary 11/26/21 MR#: [id number] Acct: [id number] Name: SU LOVING Rep #: [id number] : 1995 26 From: Pantera Jung MD PCP: Care Physician,No Primary Status:REG ER Location: ED HPI HPI - GI History of Present Illness Chief Complaint: Abd Pain Detail of Chief Complaint: Intermittent bilateral upper abdominal pain Informant: patient Abdominal Pain/Flank Pain Onset: Today Context: Sudden Onset Timing: Intermittent Quality: Sharp Location: - (Right and left costal margin region) Current Severity: Moderate Maximum Severity: Severe Worsened by: Nothing Relieved by: Nothing Nausea/Vomiting/Emesis GI Symptom: Positive for Nausea; Negative for Vomiting Quality: Negative for Nonbilious, Blood streaks, Coffee ground and Hematemesis Diarrhea/Melena/Hematoc hezia GI Symptom: Negative for Diarrhea, Melena and Hematochezia Associated Symptoms Associated Symptoms: Negative for Dysuria, Frequency and Hematuria Narrative Narrative: Patient is a 26-year-old male with history of laparoscopic cholecystectomy by Dr. Wesley Vegas and open appendectomy at outside facility who presents with intermittent bilateral upper abdominal pain that started approximate 1 hour prior to presentation. He states the pain is sharp. He does admit to smoking. He does admit to drinking on weekends. 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 He denies black or maroon-colored stool. He denies mucus or blood in the stool. He denies diarrhea. Denies change in consistency, color or caliber of his stool. He did have an EGD prior to cholecystectomy and was reported as negative. He states he had pain similar but not as severe. There is no history of pancreatitis. He denies respiratory symptoms. He denies radiation of the pain to his back. Prior similar symptoms: Yes Recent Illness/Hospitalization : No PFSH PFSH Medical History no medical history Home Medications buspirone [BuSpar] mg PO BID PRN 11/25/21 [History Last Taken Unknown] Allergy/AdvReac Type Severity Reaction Status Date / Time fluoxetine [From Prozac] Allergy Hives Verified 11/25/21 23:48 Iodinated Contrast Media Allergy Hives Verified 11/25/21 23:48 [DYEE] escitalopram [From Lexapro] AdvReac Other Verified 11/25/21 23:48 Surgical History (Updated 11/26/21 @ 00:[address] Pantera Jung MD) S/P appendectomy Status post laparoscopic cholecystectomy Social History (Updated 11/26/21 @ 00:[address] Pantera Jung MD) household members: significant other Smoking Status: Current every day smoker tobacco type: cigarettes alcohol intake: current alcohol intake frequency: other substance use type: does not use ROS ROS ED Constitutional Constitutional ED: Reports sweats and weight loss; Denies chills, fever(s) or subjective ENT ENT ED: Denies ear pain, rhinorrhea or sore throat Cardiovascular Cardiovascular: Denies chest pain, palpitations or racing heartbeat Respiratory/Chest Respiratory/Chest: Denies cough, dyspnea or dyspnea on exertion Gastrointestinal Gastrointestinal: Reports abdominal pain and nausea; Denies constipation, diarrhea, melena or vomiting Genitourinary Genitourinary ED: Denies dysuria, hematuria or urinary frequency Musculoskeletal Musculoskeletal: Denies arthralgias, back pain, myalgias or neck pain Integumentary Denies rash Neurologic Neurologic: Denies paresthesias or weakness Hematologic/Lymphatic Hematologic/Lymphatic: Denies easy bruising EXAM Physical Exam Const Vital Signs: 11/25/21 23:45 Temperature 97.6 F L Temperature Source Oral Pulse Rate 111 H Respiratory Rate 18 Blood Pressure 137/86 H Blood Pressure Mean 103 Pulse Ox 94 Oxygen Delivery Method Room Air Positive well nourished and well developed General Appearance ED: well developed and NAD; Negative for pallor HEENT Reports moist mucous membranes HEENT Narrative: Trachea midline. Ears are normal. normocephalic and atraumatic Eyes PERRL and EOMs intact bilaterally General Eye ED: Negative for pale conjunctiva or scleral icterus Neck no lymphadenopathy, supple and no JVD Resp normal respiratory effort and clear to auscultation bilaterally Cardio regular rate, regular rhythm, S1 normal heart sound, S2 normal heart sound and no murmurs GI non-distended and no masses Auscultation: normoactive bowel sounds Palpation: soft and tender other (Patient reports tenderness throughout. Scars for port site for cholecystectomy noted and scar for appendectomy noted.); Negative for hepatomegaly, splenomegaly or mass Back/Spine no CVA tenderness Extremity full ROM General Extremety ED: Negative for edema or tenderness General Extremity: Negative for edema Neuro CN's II-XII intact bilatera (more content not included)... Normal [facility] Lipaseon 11-26-2021 Lipase [Catalytic activity/Vol] 67 U/L Low 73-393 [facility] Comment on above: Performed By: #### L 100.0100, L501.2450, L500.4050, L501.9100 #### [facility] [address] [place], [address] 12 Lead EKGon 02-12-2021 12 Lead EKG [facility] [address] [place] [address] 12 Lead EKG 02/11/21 2336 MR#: [id number] Acct: [id number] Name: SU LOVING Rep #: [id number] : 1995 25 From: Homero Varner MD Attending Dr: Status: DEP ER Ordering Dr: Jas Steve MD Date: 02/11/21 Location: ED Sex: M C Admitted: Test Reason : ABDOMINAL PAIN Blood Pressure : / mmHG Vent. Rate : 087 BPM Atrial Rate : 087 BPM P-R Int : 170 ms QRS Dur : 090 ms QT Int : 350 ms P-R-T Axes : 063 056 036 degrees QTc Int : 421 ms Normal sinus rhythm with sinus arrhythmia Normal ECG Confirmed by TELLY YEBOAH, HOMERO ([id number]), online editor PRISCILA DAMON ([id number]) on 02/15/2021 9:28:29 AM Referred By: IVONNE Confirmed By:HOMERO VARNER MD 02/15/2128 Date Homero Varner MD CC: No Primary Care Physician; Dr. Jas Steve MD Signed Normal [facility] CBC W/Diff, Automatedon 03-2 Absolute Lymph 2.06 X10 3/uL Normal 0.83-4.51 [facility] Comment on above: Performed By: #### L 100.0100, L501.4010, L501.2450, L500.4050 #### [facility] [address] [place], [address] Absolute Neut 5.2 X10 3/uL Normal 2.0-7.7 [facility] Comment on above: Performed By: #### L 100.0100, L501.4010, L501.2450, L500.4050 #### [facility] [address] [place], [address] Basophils/100 WBC (Bld) 0.6 % Normal 0-1 [facility] Comment on above: Performed By: #### L 100.0100, L501.4010, L501.2450, L500.4050 #### [facility] [address] [place], [address] Eosinophils/100 WBC (Bld) 2.4 % Normal 0-5 [facility] Comment on above: Performed By: #### L 100.0100, L501.4010, L501.2450, L500.4050 #### [facility] [address] [place], [address] Erythrocyte distribution width (RBC) [Ratio] 12.9 % Normal 11.6-14.6 [facility] Comment on above: Performed By: #### L 100.0100, L501.4010, L501.2450, L500.4050 #### [facility] [address] [place], [address] Hematocrit (Bld) [Volume fraction] 43.8 % Normal 40-54 [facility] Comment on above: Performed By: #### L 100.0100, L501.4010, L501.2450, L500.4050 #### [facility] [address] [place], [address] Hemoglobin (Bld) [Mass/Vol] 14.5 g/dL Normal 13.0-16.5 [facility] Comment on above: Performed By: #### L 100.0100, L501.4010, L501.2450, L500.4050 #### [facility] [address] [place], [address] IG% 0.500 Normal 0.0-0.9 [facility] Comment on above: Result Comment: IG% - Immature Granulocytes (promyelocytes, myelocytes and metamyelocytes) > 1% indicates that a LEFT SHIFT is Present. Performed By: #### L 100.0100, L501.4010, L501.2450, L500.4050 #### [facility] [address] [place], [address] Lymphocytes/100 WBC (Bld) 24.8 % Normal 19-41 [facility] Comment on above: Performed By: #### L 100.0100, L501.4010, L501.2450, L500.4050 #### [facility] [address] [place], [address] MCH (RBC) [Entitic mass] 31.3 pg Normal 27.0-32.0 [facility] Comment on above: Performed By: #### L 100.0100, L501.4010, L501.2450, L500.4050 #### [facility] [address] [place], [address] MCHC (RBC) [Mass/Vol] 33.1 g/dL Normal 32-36 [facility] Comment on above: Performed By: #### L 100.0100, L501.4010, L501.2450, L500.4050 #### [facility] [address] [place], [address] MCV (RBC) [Entitic vol] 94.4 fL High 80-94 [facility] Comment on above: Performed By: #### L 100.0100, L501.4010, L501.2450, L500.4050 #### [facility] [address] [place], [address] Monocytes/100 WBC (Bld) 9.5 % Normal 0-10 [facility] Comment on above: Performed By: #### L 100.0100, L501.4010, L501.2450, L500.4050 #### [facility] [address] [place], [address] Neutrophils/100 WBC (Bld) 62.2 % Normal 47-70 [facility] Comment on above: Performed By: #### L 100.0100, L501.4010, L501.2450, L500.4050 #### [facility] [address] [place], [address] Nucleated RBC (Bld) [#/Vol] 0 10*3/uL Normal 0-5 [facility] Comment on above: Performed By: #### L 100.0100, L501.4010, L501.2450, L500.4050 #### [facility] [address] [place], [address] Platelet mean volume (Bld) [Entitic vol] 10.4 fL Normal 6.2-12.0 [facility] Comment on above: Performed By: #### L 100.0100, L501.4010, L501.2450, L500.4050 #### [facility] [address] [place], [address] Platelets (Bld) [#/Vol] 237 10*3/uL Normal 150-450 [facility] Comment on above: Performed By: #### L 100.0100, L501.4010, L501.2450, L500.4050 #### [facility] [address] [place], [address] RBC (Bld) [#/Vol] 4.64 10*6/uL Normal 4.6-6.2 [facility] Comment on above: Performed By: #### L 100.0100, L501.4010, L501.2450, L500.4050 #### [facility] [address] [place], [address] RDW SD 44.6 fl High 35.1-43.9 [facility] Comment on above: Performed By: #### L 100.0100, L501.4010, L501.2450, L500.4050 #### [facility] [address] [place], [address] WBC (Bld) [#/Vol] 8.3 10*3/uL Normal 4.4-11.0 [facility] Comment on above: Performed By: #### L 100.0100, L501.4010, L501.2450, L500.4050 #### [facility] [address] [place], [address] Chest 1 View (Portable)on Chest 1 View (Portable) [facility] Imaging Services [address] [place] [address] Chest 1 View (Portable) MR#: [id number] Acct: [id number] Name: SU LOVING Rep #: [id number] : 1995 M 25 From: Osorio Hidalgo PCP: Care Physician, No Primary Status: [facility] ER Study: Chest 1 View (Portable) Date of Exam: 02/11/21 Exam# [id number] Ordering Dr: Jas Steve MD STUDY: X-RAY CHEST REASON FOR EXAM: Male, 25 years old. Chest pain. TECHNIQUE: AP portable upright COMPARISON: 05/29/2017 CXR FINDINGS: No apparent pneumothorax, pneumonia, pleural effusion, or edema. Cardiac silhouette, tacos and mediastinal contours are within normal limits. No acute osseous abnormality. No evidence of free air under the diaphragm. RAD/Chest 1 View (Portable) IMPRESSION: Negative chest radiograph. Electronically Signed: Osorio Sanchez MD at 2:01 EDT Tel , Service support , CC: No Primary Care Physician; Dr. Jas Steve MD Remote Sensing Advisor: Signed Normal [facility] Comprehensive Metabolic Prof ilon 02-12-2021 Albumin [Mass/Vol] 3.7 g/dL Normal 3.2-5.0 [facility] Comment on above: Performed By: #### L 100.0100, L501.4010, L501.2450, L500.4050 #### [facility] [address] [place], [address] Albumin/Globulin [Mass ratio] 1.0 {ratio} Normal 0.9-2.4 [facility] Comment on above: Performed By: #### L 100.0100, L501.4010, L501.2450, L500.4050 #### [facility] [address] [place], [address] ALK P 50 U/L Normal 45-117 [facility] Comment on above: Performed By: #### L 100.0100, L501.4010, L501.2450, L500.4050 #### [facility] [address] [place], [address] ALT [Catalytic activity/Vol] 124 U/L High 16-61 [facility] Comment on above: Performed By: #### L 100.0100, L501.4010, L501.2450, L500.4050 #### [facility] [address] [place], [address] AST [Catalytic activity/Vol] 50 U/L High 15-37 [facility] Comment on above: Performed By: #### L 100.0100, L501.4010, L501.2450, L500.4050 #### [facility] [address] [place], [address] Bilirubin [Mass/Vol] 0.20 mg/dL Normal 0.20-1.00 [facility] Comment on above: Result Comment: For patients on eltrombopag therapy, use of Dimension Alpine TBIL is not recommended. Performed By: #### L 100.0100, L501.4010, L501.2450, L500.4050 #### [facility] [address] [place], [address] BUN/CRE 16.8 RATIO Normal 10-20 [facility] Comment on above: Performed By: #### L 100.0100, L501.4010, L501.2450, L500.4050 #### [facility] [address] [place], [address] CA,Total 8.8 mg/dL Normal 8.5-10.1 [facility] Comment on above: Performed By: #### L 100.0100, L501.4010, L501.2450, L500.4050 #### [facility] [address] [place], [address] Chloride [Moles/Vol] 107 mmol/L Normal 98-107 [facility] Comment on above: Performed By: #### L 100.0100, L501.4010, L501.2450, L500.4050 #### [facility] [address] [place], [address] CO2 [Moles/Vol] 27.0 mmol/L Normal 21.0-32.0 [facility] Comment on above: Performed By: #### L 100.0100, L501.4010, L501.2450, L500.4050 #### [facility] [address] [place], [address] Creatinine [Mass/Vol] 1.01 mg/dL Normal 0.70-1.30 [facility] Comment on above: Result Comment: The validity of the calculated GFR GFRAA in patients over 70 years has not been determined. Clinical correlation is essential. Performed By: #### L 100.0100, L501.4010, L501.2450, L500.4050 #### [facility] [address] [place], [address] ECRCL 124.16 ml/min Normal [facility] Comment on above: Performed By: #### L 100.0100, L501.4010, L501.2450, L500.4050 #### [facility] [address] [place], [address] EST GFR - AA 114 mL/min Normal >60 [facility] Comment on above: Result Comment: Afri can [place] GFR Calc Performed By: #### L 100.0100, L501.4010, L501.2450, L500.4050 #### [facility] [address] [place], [address] GAP 6 Normal 5-15 [facility] Comment on above: Performed By: #### L 100.0100, L501.4010, L501.2450, L500.4050 #### [facility] [address] [place], [address] GFR/1.73 sq M.predicted among non-blacks MDRD (S/P/Bld) [Vol rate/Area] 94 mL/min/{1.73_m2} Normal >60 [facility] Comment on above: Result Comment: Non- GFR Calc Performed By: #### L 100.0100, L501.4010, L501.2450, L500.4050 #### [facility] [address] [place], [address] Globulin (S) [Mass/Vol] 3.7 g/dL Normal 2.2-4.2 [facility] Comment on above: Performed By: #### L 100.0100, L501.4010, L501.2450, L500.4050 #### [facility] [address] [place], [address] Glucose [Mass/Vol] 83 mg/dL Normal 74-106 [facility] Comment on above: Result Comment: Mervat ferrari note revised GLUCOSE reference range effective 2017. Performed By: #### L 100.0100, L501.4010, L501.2450, L500.4050 #### [facility] [address] [place], [address] Potassium [Moles/Vol] 4.0 mmol/L Normal 3.5-5.1 [facility] Comment on above: Performed By: #### L 100.0100, L501.4010, L501.2450, L500.4050 #### [facility] [address] [place], [address] Sodium [Moles/Vol] 140 mmol/L Normal 136-145 [facility] Comment on above: Performed By: #### L 100.0100, L501.4010, L501.2450, L500.4050 #### [facility] [address] [place], [address] T PROT 7.4 g/dL Normal 6.4-8.2 [facility] Comment on above: Performed By: #### L 100.0100, L501.4010, L501.2450, L500.4050 #### [facility] [address] [place], [address] Urea nitrogen [Mass/Vol] 17 mg/dL Normal 7-18 [facility] Comment on above: Performed By: #### L 100.0100, L501.4010, L501.2450, L500.4050 #### [facility] [address] [place], [address] Emergency Department Summary on 02-12-2021 Emergency Department Summary [facility] Medical Records Department [address] [place] [address] Emergency Department Summary 02/11/21 MR#: [id number] Acct: [id number] Name: SU LOVING Rep #: [id number] : 1995 25 From: Jas Steve MD PCP: Care Physician, No Primary Status:REG ER History of Present Illness Chief Complaint: Abd Pain Informant: Patient - Abdominal Pain/Flank Pain Onset: Today - around 4 hrs ago Context: Gradual Onset - at rest Timing: Continuous Quality: Sharp Location: Epigastric Current Severity: Moderate Maximum Severity: Moderate Worsened by: Nothing Relieved by: Nothing - tried Tylenol and alkaseltzer tabs - Nausea/Vomiting/Emesis GI Symptom: Nausea. Negative for: Vomiting - Diarrhea/Melena/Hematoc hezia GI Symptom: Negative for: Diarrhea, Melena, Hematochezia Associated Symptoms: Negative for: Dysuria, Frequency, Hematuria, Urgency Narrative: Sharp pain epigastrium for the last 4 hours, radiating up into chest more on the left side. No arm discomfort, back discomfort, no systemic symptoms, pleuritic discomfort, dyspnea, palpitations, dizziness. Has had normal bowel movements lately last 1 was earlier today, no difficulty getting bowel movements now. No difficulty urinating. States he has been taking ibuprofen around twice daily to help nonpleuritic chest discomfort that he had for the last week or 2, now resolved, diagnosed as pleurisy at [facility] when he was there. No melena or bright red blood per rectum, no vomiting but nauseated. Past Medical History - Allergies and Home Meds Allergies/Adverse Reactions: Allergies fluoxetine [From Prozac] Allergy (Verified 02/11/21 23:04) Hives Primary Care Physician: Care Physician,No Primary [Primary Care Provider] - Surgical History: appendectomy, cholecystectomy Smoking Status: Current every day smoker Review of Systems General: Denies: Chills, Fever, Sweats Eyes: Denies: Visual changes - bilaterally, Diplopia ENT: Denies: Rhinorrhea, Sore throat Cardiovascular: Reports: Chest pain. Denies: Palpitations Respiratory: Denies: Dyspnea, Cough, Dyspnea on exertion Gastrointestinal: Reports: Abdominal pain, Nausea. Denies: Vomiting, Diarrhea, Melena, Hematochezia Genitourinary: Denies: Dysuria, Hematuria, Frequency Musculoskeletal: Denies: Back pain, Swelling, Extremity Pain Skin: Denies: Rash, Wounds Neurological: Denies: Headache, Weakness, Numbness Physical Exam Vital Signs/Narrative: Vital Signs Temp Pulse Resp BP Pulse Ox 02/11/21 23:05 97 F L 97 18 141/86 H 96 General: Well nourished, Well developed, No Acute Distress Head: Normocephalic, Atraumatic Eyes: Perrl, EOMI ENT: Moist mucous membranes, No rhinorrhea Neck: Supple, Nontender Cardiovascular: Regular rate, Regular rhythm, No murmurs Respiratory: No distress, CTA bilaterally, Chest nontender Abdomen: Soft, Nontender, Nondistended, Normal bowel sounds, No masses, Tender - epigastrium only. Negative for: Guarding, Rebound tenderness, Snyder's sign Back: Nontender, Normal Inspection. Negative for: CVA tenderness Extremities: Nontender, No edema. Negative for: Calf Tenderness Skin: Normal color, No rash, No Trauma. Negative for: Jaundice Neurological: Alert, Oriented x3, Cranial nerves II-XII grossly intact, Normal Strength, Normal Sensation, Normal Gait Psychological: Normal affect, Normal Mood Diagnostic/Tx/Re-eval Chest X-Ray - ED: 1 View, Read by ED Physician, Normal, Heart, Lungs, Mediastinum, Bony Structures, No Acute Disease, No Infiltrates 02/11/21 23:59 Chest 1 View (Portable) [RAD] Stat Laboratory Results 02/11/21 02/11/21 00:20 00:20 WBC 8.3 RBC 4.64 Hgb 14.5 Hct 43.8 MCV 94.4 H MCH 31.3 MCHC 33.1 RDW Std Deviation 44.6 H RDW Coeff of Nubia 12.9 Plt Count 237 MPV 10.4 Immature Gran % (Auto) 0.500 Neut % (Auto) 62.2 Lymph % (Auto) 24.8 Brantley % (Auto) 9.5 Eos % (Auto) 2.4 Baso % (Auto) 0.6 Absolute Neuts (auto) 5.2 Absolute Lymphs (auto) 2.06 Nucleated RBC % 0 Sodium 140 Potassium 4.0 Chloride 107 Carbon Dioxide 27.0 Anion Gap 6 BUN 17 Creatinine 1.01 Estim Creat Clear Calc 124.16 Est GFR (MDRD) Af Amer 114 Est GFR (MDRD) Non-Af 94 BUN/Creatinine Ratio 16.8 Glucose 83 Calcium 8.8 Total Bilirubin 0.20 AST 50 H ALT 124 H Alkaline Phosphatase 50 Troponin I < 0.015 Total Protein 7.4 Albumin 3.7 Globulin 3.7 Albumin/Globulin Ratio 1.0 Lipase 113 - Rhythm Strip Rhythm Strip: Sinus Rhythm Rate: 87 Ectopy: None - EKG Initial EKG Interpretation: Sinus Rhythm, No Acute Injury Pattern - normal EKG Prior: Unchanged - Medical Decision Making Patient is well-appearing with epigastric pain and tenderness. His work-up shows 2 very slightly e (more content not included)... Normal [facility] Lipaseon 02-12-2021 Lipase [Catalytic activity/Vol] 113 U/L Normal 73-393 [facility] Comment on above: Performed By: #### L 100.0100, L501.4010, L501.2450, L500.4050 ####[facility] [address] [place], [address] Troponin-Ion 02-12-2021 Troponin I.cardiac [Mass/Vol] ng/mL Normal <0.045 [facility] Comment on above: Result Comment: TROP ONIN-I EXPECTED VALUES <0.045 Negative 0.045 - 0.590 Consistent with Cardiac Damage > OR = 0.600 Critical Value Not every elevated troponin is indicative of ND. These values should be used with clinical judgement in examining the patient's clinical picture for diagnosis. To establish a diagnosis of ND versus myocardial injury, there must be a demonstrated rise and/or fall in the troponin values, in addition to ischemic symptoms, EKG changes, new regional wall motion abnormality, and/or angiographical evidence. PLEASE NOTE: REFERENCE RANGES EDITED 18 Performed By: #### L 100.0100, L501.4010, L501.2450, L500.4050 ####[facility] [address] [place], [address] PROGRESSon 11-29-2019 PROGRESS HNO ID: [id number] Author: Rae SiddiqiOd) Blanca Service: ? Author Type: STRATIGRAPHER Type: Progress Notes Filed: 11/29/2019 1:40 PM Note Text: ASSESSMENT/PLAN: 1. Hyperopia, bilateral - ICD9: 367.0, ICD10: H52.03 (primary diagnosis) 2. 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 Examination of eyes and vision - ICD9: V72.0, ICD10: Z01.00 Suggested wearing glasses as desired. Recommended yearly exams. Rae Rios, OD I have confirmed and edited as necessary the relevant ophthalmic history, ROS, and the neuro exam findings as obtained by others. I have seen and examined this patient. I have discussed the case and the management of this patient's care with the Resident/Fellow, if applicable. I also have reviewed and agree with the assessment and plan as stated above and agree with all of its relevant components. Normal [facility] Auto Diffon 11-15-2017 Basophils Auto #/vol (Bld) 0.0 E3/mcL Normal 0.0-0.2 [facility] Comment on above: Order Comment: Order Added by Discern Expert. Performed By: #### 2 [id number] ####HORACE [address] [place] [address] Basophils/100 WBC Auto (Bld) 0.7 % Normal 0.0-2.0 [facility] Comment on above: Order Comment: Order Added by Discern Expert. Performed By: #### 2 838842 ####HORACE [address] [place] [address] Eos Absolute 0.2 E3/mcL Normal 0.0-0.7 [facility] Comment on above: Order Comment: Order Added by Discern Expert. Performed By: #### 2 170839 ####HORACE [address] [place] [address] Eosinophils/100 leukocytes 3.9 % Normal 0.0-11.0 [facility] Comment on above: Order Comment: Order Added by Discern Expert. Performed By: #### 2 807254 ####H[address]ACE [address] [place] [address] Lymphocytes 2.0 E3/mcL Normal 1.2-3.4 [facility] Comment on above: Order Comment: Order Added by Discern Expert. Performed By: #### 2 368807 ####H[address]ACE [address] [place] [address] Lymphocytes/100 leukocytes 35.7 % Normal 20.0-55.0 [facility] Comment on above: Order Comment: Order Added by Discern Expert. Performed By: #### 2 480609 ####HORACE [address] [place] [address] Brantley Absolute 0.6 E3/mcL Normal 0.0-0.7 [facility] Comment on above: Order Comment: Order Added by Discern Expert. Performed By: #### 2 607678 ####HORACE [address] [place] [address] Monocytes/100 leukocytes 11.1 % High 0.0-10.0 [facility] Comment on above: Order Comment: Order Added by Discern Expert. Performed By: #### 2 308179 ####H[address]ACE [address] [place] [address] Neutro Absolute 2.7 E3/mcL Normal 1.4-6.5 [facility] Comment on above: Order Comment: Order Added by Discern Expert. Performed By: #### 2 341966 ####HORACE [address] [place] [address] Neutro Auto 48.6 % Normal 37.0-75.0 [facility] Comment on above: Order Comment: Order Added by Discern Expert. Performed By: #### 2 156002 ####HORACE [address] [place] [address] BMPon 11-15-2017 BUN/Creatinine Ratio 12.0 ratio Normal 5.4-30.0 [facility] Comment on above: Performed By: #### 2 225324 ####HORACE [address] [place] [address] Creatinine 1.0 mg/dL Normal 0.6-1.3 [facility] Comment on above: Performed By: #### 2 960642 ####HORACE [address] [place] [address] Urea nitrogen 12 mg/dL Normal 7-18 [facility] Comment on above: Performed By: #### 2 719910 ####HORACE [address] [place] [address] Calcium 9.1 mg/dL Normal 8.4-10.2 [facility] Comment on above: Performed By: #### 2 857275 ####HORACE [address] [place] [address] Chloride 104 mmol/L Normal 98-107 [facility] Comment on above: Performed By: #### 2 878666 ####HORACE [address] [place] [address] CO2 27.9 mmol/L Normal 24.0-30.0 [facility] Comment on above: Performed By: #### 2 776419 ####HORACE [address] [place] [address] Glucose mass conc 85 mg/dL Normal 70-99 [facility] Comment on above: Performed By: #### 2 714012 ####HORACE [address] [place] [address] Potassium molar conc 3.8 mmol/L Normal 3.5-5.1 [facility] Comment on above: Performed By: #### 2 165513 ####HORACE [address] [place] [address] Sodium 137 mmol/L Normal 136-145 [facility] Comment on above: Performed By: #### 2 174686 ####HORACE [address] [place] [address] CBC w/ Auto Diffon 7 Erythrocyte distribution width Auto Ratio (RBC) 13.6 % Normal 11.5-14.5 [facility] Comment on above: Performed By: #### 2 787306 ####HORACE [address] [place] [address] Erythrocytes (RBC) 4.76 E6/mcL Normal 3.90-6.[address] [facility] Comment on above: Performed By: #### 2 404835 ####HORACE [address] [place] [address] Hematocrit (HCT) 41.9 % Low 42.0-52.0 [facility] Comment on above: Performed By: #### 2 062702 ####HORACE [address] [place] [address] Hemoglobin mass conc (Bld) 13.9 g/dL Normal 13.5-18.0 [facility] Comment on above: Performed By: #### 2 803152 ####HORACE [address] [place] [address] MCH 29.2 pg Normal 27.0-31.0 [facility] Comment on above: Performed By: #### 2 308910 ####HORACE [address] [place] [address] MCHC mass conc (RBC) 33.2 g/dL Normal 33.0-37.0 [facility] Comment on above: Performed By: #### 2 110545 ####HORACE [address] [place] [address] MCV 88.0 fL Normal 78.0-100.0 [facility] Comment on above: Performed By: #### 2 690341 ####HORACE [address] [place] [address] Platelet mean volume (PMV) 9.2 fL Normal 7.4-11.0 [facility] Comment on above: Performed By: #### 2 232010 ####HORACE [address] [place] [address] Platelets 175 E3/mcL Normal 130-400 [facility] Comment on above: Performed By: #### 2 563095 ####HORACE [address] [place] [address] WBC (Leukocytes) 5.5 E3/mcL Normal 3.6-11.0 [facility] Comment on above: Performed By: #### 2 841606 ####HORACE [address] [place] [id number] Hep Func Panelon 12-30-2017 Alanine aminotransferase (ALT) 22 Int._Unit/L Normal 10-40 [facility] Comment on above: Performed By: #### 2 969401 ####HORACE [address] [place] [address] Albumin 4.1 g/dL Normal 3.2-5.0 [facility] [facility] Comment on above: Performed By: #### 2 [id number] ####HORACEDenae ArceFybYhao7614 [place] [id number] Albumin/Globulin Ratio 1.3 {ratio} Normal 1.1-1.9 [facility] Comment on above: Performed By: #### 2 842691 ####HORACEDenae ArceUxbZqqb1222 [place] [address] Alk Phos 38 Int._Unit/L Low 42-121 [facility] Comment on above: Performed By: #### 2 018461 ####HORACEDenae ArceZvrXwce9023 [place] 3615405 Aspartate aminotransferase (AST) 17 Int._Unit/L Normal 10-42 [facility] Comment on above: Performed By: #### 2 839931 ####HORACE YnfIlkn8634 [place] [address] Bili Direct <.10 Normal .00-.20 [facility] Comment on above: Performed By: #### 2 695844 ####HORACEDenae ArceYbgLgqa6603 [place] [address] Bili Indirect >0.4 Normal [facility] Comment on above: Result Comment: No e stablished ranges available for the Indirect Biliruben. Performed By: #### 2 190568 ####HORACEDenae ArceHrwRdnn0988 [place] [address] Bili Total 0.5 mg/dL Normal 0.2-1.0 [facility] Comment on above: Performed By: #### 2 450215 ####HORACEDenae DelaneyIyxWmow0604 [place] [address] Globulin 3.1 g/dL Normal 2.0-4.0 [facility] Comment on above: Performed By: #### 2 707855 ####HORACEDenae ArceNqfLguv4795 [place] [address] Protein 7.2 g/dL Normal 6.4-8.3 [facility] Comment on above: Performed By: #### 2 363413 ####HORACE QayCrto0749 [place] [address] Lipase Levelon 11-15-2017 Lipase Lvl 16 U/L Normal 8-57 [facility] Comment on above: Performed By: #### 2 574903 ####HORACE QglKhjg9086 [place] [address] UA Completeon 11-15-2017 UA Blood Negative Normal Negative [facility] Comment on above: Performed By: #### 2 859692 ####HORACEDeane ArceLkfLbkb8685 [place] [address] UA Bacteria Trace Abnormal None [facility] Comment on above: Performed By: #### 2 558390 ####HORACE OmkAdhm2912 [place] [address] UA Clarity Clear Normal Clear [facility] Comment on above: Performed By: #### 2 326501 ####HORACE VhhLfvc9656 [place] [address] UA Leuk Est Negative Normal Negative [facility] Comment on above: Performed By: #### 2 361841 ####HORACE XifQjcz5077 [place] [address] UA Mucous Moderate Abnormal Trace [facility] Comment on above: Performed By: #### 2 822240 ####HORACEDenae ArceGtzVhfc5160 [place] [address] UA Nitrite Negative Normal Negative [facility] Comment on above: Performed By: #### 2 511324 ####HORACE HpiLbcy6821 [place] [address] UA pH 6.0 Normal 4.6-8.0 [facility] Comment on above: Performed By: #### 2 410752 ####HORACE FajUgqt3981 [place] [address] UA Protein Negative Normal Negative [facility] Comment on above: Performed By: #### 2 017838 ####HORACEDenae ArceFhhYzgr2850 [place] [address] UA Spec Grav 1.030 Normal 1.003-1.030 [facility] Comment on above: Performed By: #### 2 456780 ####HORACE JpqOlyb8529 [place] [address] UA Urobilinogen 2.0 mg/dL Abnormal [facility] Comment on above: Performed By: #### 2 114193 ####HORACE CrcUhze2862 [place] [address] UA WBC 0-5 Normal 0-5 [facility] Comment on above: Performed By: #### 2 855067 ####HORACE HnyPchg0476 [place] [address] Urine, color Yellow Normal Yellow [facility] Comment on above: Performed By: #### 2 975314 ####HORACEDenae ArceRxkVtxt1957 [place] [address] Urine, erythrocytes 0-3 Normal 0-[address] [facility] Comment on above: Performed By: #### 2 461603 ####HORACEDenae ArceLvrBcwk8155 [place] [address] Urine, glucose Negative Normal Negative [facility] Comment on above: Performed By: #### 2 175939 ####HORACE QxaMpjy8492 [place] [address] Urine, ketones presence Negative Normal Negative [facility] Comment on above: Performed By: #### 2 446499 ####HORACE EhjKksf9834 [place] [address] Urine, urobilinogen Negative Normal Negative [facility] Comment on above: Performed By: #### 2 240695 ####HORACE KmcYztx4915 [place] [address] eGFRon 11-15-2017 eGFR (non-black) mL/min/{1.73_m2} Normal [facility] Comment on above: Order Comment: Order added by Discern Expert. Performed By: #### 2 104679 ####HORACE VmtFtsa9932 [place] [address] Troponin-Ion 09-07-2017 Troponin I.cardiac mass conc ng/mL Normal .00-.03 [facility] Comment on above: Performed By: #### 2 464733 ####HORACEDenae DelaneyIhlDphp0306 [place] [address] XR Chest 2 Viewson 7 INR Coag RelTime (Bld) Exam Date/Time:09/07/2017 02:18 EDTReason for Exam:Chest painReportHISTORY: Chest pain.PA AND LATERAL CHEST 09/07/2017.FINDINGS: The cardiomediastinal contours are within normal limits. No denseconsolidation, edema, failure, pneumothorax, or acute osseous abnormalityidentified. Gallbladder is surgically absent.IMPRESSION:No acute cardiopulmonary process. Cholecystectomy. FINAL REPORT Dictated: 09/07/2017 2:40 am Popeye Joseph MD KSigned (Electronic Signature): 09/07/2017 2:40 amSigned by: Popeye Joseph MD Technologist: GAUTAM Bates [facility] Office Visit: abdominal pain on 08-28-2017 Fall risk assessment No Invalid Interpretation Code [facility] [employer] Work Phone: Protein mass conc yes Invalid Interpretation Code [facility] [employer] Work Phone: Protein mass conc Done Invalid Interpretation Code [facility] [employer] Work Phone: Protein mass conc no Invalid Interpretation Code [facility] [employer] Work Phone: Tobacco smoking status NHIS Never Invalid Interpretation Code [facility] [employer] Work Phone: Tobacco smoking status IDIS Current every day smoker Invalid Interpretation Code [facility] [employer] Work Phone: C Urineon 08-17-2017 C Urine Final Report: No growth Normal [facility] Comment on above: Performed By: #### 2 [id number] ####HORACE RgiUbmu7252 [place] [address] Chlamydia GC by PCRon 2016 Chlamydia by PCR. Not Detected Normal Not Detected [facility] Comment on above: Result Comment: Xper t CT/NG Assay performance has not been evaluated in patients less than 14 years of age. Performed By: #### 3 [id number] ####HORACE Misc Micro SubSection, Gonorrhoeae by PCR Not Detected Normal Not Detected [facility] Comment on above: Result Comment: Xper t CT/NG Assay performance has not been evaluated in patients less than 14 years of age. Performed By: #### 3 [id number] ####HORACE [facility] Micro SubSection, Helicobacter pylori Antibody (IgM)on 07-29-2017 H. pylori IgM Abs <9.0 Normal [facility] Comment on above: Result Comment: Refe rence Interval<9.0 negativeReference lab result manually entered by SC Performed By: #### 1 [id number] ####HORACE Send Outs Efgvilsmjr3674 [place] [address] XR Small Bowel w/ Serial Ozzie mson 07-24-2017 XR Small Bowel w/ Serial Films Exam Date/Time:07/24/2017 11:21 EDTReason for Exam:EPIGASTRIC PAIN NAUSEA RIGHT UPPER QUAD ABD PAIN;Abdominal painReportEXAMINATION: XR SMALL BOWEL WITH SERIAL FILMSCLINICAL STATEMENT: Abdominal pain.COMPARISON: None.FLUOROSCOPY TIME: Fluoro time measures 0 and 10 images were obtained.TECHNIQUE:FIND INGS: The caliber, contour, and peristalsis of the small bowel are normal.There is no abnormal narrowing or extrinsic displacement of the bowel loops.The terminal ileum is normal in caliber. The transit time is also within normallimits. No evidence of malabsorption syndrome is seen. No mucosal thickening ispresent.IMPRESSION:No rmal small bowel series. FINAL REPORT Dictated: 07/24/2017 5:28 pm Lenny Ritchie MD KSigned (Electronic Signature): 07/24/2017 5:28 pmSigned by: Lenny Ritchie MD Technologist: KARUNA Normal [facility] Auto Diffon 07-17-2017 Basophils Auto #/vol (Bld) 0.1 E3/mcL Normal 0.0-0.2 [facility] Comment on above: Order Comment: Order Added by Discern Expert. Performed By: #### 2 229093 ####HORACE HtgUyrd6064 [place] [address] Basophils/100 WBC Auto (Bld) 0.9 % Normal 0.0-2.0 [facility] Comment on above: Order Comment: Order Added by Discern Expert. Performed By: #### 2 908892 ####HORACE CcaKdaq7219 [place] [address] Eos Absolute 0.3 E3/mcL Normal 0.0-0.7 [facility] Comment on above: Order Comment: Order Added by Discern Expert. Performed By: #### 2 525267 ####HORACE DelaneyRacZiol3810 [place] [address] Eosinophils/100 leukocytes 3.6 % Normal 0.0-11.0 [facility] Comment on above: Order Comment: Order Added by Discern Expert. Performed By: #### 2 655073 ####HORACE DelaneyHzrInpg4780 [place] [address] Lymphocytes 2.3 E3/mcL Normal 1.2-3.4 [facility] Comment on above: Order Comment: Order Added by Discern Expert. Performed By: #### 2 638415 ####HORACE DelaneyDmuYhhr5728 [place] [address] Lymphocytes/100 leukocytes 28.4 % Normal 20.0-55.0 [facility] Comment on above: Order Comment: Order Added by Discern Expert. Performed By: #### 2 675946 ####HORACE DelaneyLvgQeky2972 [place] [address] Brantley Absolute 0.6 E3/mcL Normal 0.0-0.7 [facility] Comment on above: Order Comment: Order Added by Discern Expert. Performed By: #### 2 752219 ####HORACE DelaneyRjzAzpv8710 [place] [address] Monocytes/100 leukocytes 7.8 % Normal 0.0-10.0 [facility] Comment on above: Order Comment: Order Added by Discern Expert. Performed By: #### 2 963200 ####HORACE DelaneyOymRnbv5017 [place] [address] Neutro Absolute 4.7 E3/mcL Normal 1.4-6.5 [facility] Comment on above: Order Comment: Order Added by Discern Expert. Performed By: #### 2 600710 ####HROACE DelaneyLxqBjpu4052 [place] [address] Neutro Auto 59.3 % Normal 37.0-75.0 [facility] Comment on above: Order Comment: Order Added by Discern Expert. Performed By: #### 2 422188 ####HORACE Pittmano1025 [place] [address] CBC w/ Auto Diffon 7 Erythrocyte distribution width Auto Ratio (RBC) 12.7 % Normal 11.5-14.5 [facility] Comment on above: Performed By: #### 2 640076 ####HORACE Pittmano1025 [place] [address] Erythrocytes (RBC) 4.90 E6/mcL Normal 3.90-6.[address] [facility] Comment on above: Performed By: #### 2 021728 ####HORACE Pittmano1025 [place] 36[address]405 Hematocrit (HCT) 44.4 % Normal 42.0-52.0 [facility] Comment on above: Performed By: #### 2 230111 ####HORACE Pittmano1025 [place] [address] Hemoglobin mass conc (Bld) 14.9 g/dL Normal 13.5-18.0 [facility] Comment on above: Performed By: #### 2 348867 ####HORACE Pittmano1025 [place] [address] MCH 30.5 pg Normal 27.0-31.0 [facility] Comment on above: Performed By: #### 2 341512 ####HORACE Pittmano1025 [place] [address] MCHC mass conc (RBC) 33.6 g/dL Normal 33.0-37.0 [facility] Comment on above: Performed By: #### 2 710177 ####HORACE DelaneyPciKbfq1583 [place] [address] MCV 90.8 fL Normal 78.0-100.0 [facility] Comment on above: Performed By: #### 2 276866 ####HORACE DelaneyMsbAmhq6422 [place] [address] Platelet mean volume (PMV) 9.9 fL Normal 7.4-11.0 [facility] Comment on above: Performed By: #### 2 420748 ####HORACE DelaneyKzqOujt8835 [place] 3615405 Platelets 200 E3/mcL Normal 130-400 [facility] Comment on above: Performed By: #### 2 306010 ####HORACE Pittmano1025 [place] [address] WBC (Leukocytes) 8.0 E3/mcL Normal 3.6-11.0 [facility] Comment on above: Performed By: #### 2 148265 ####HORACE Pittmano1025 [place] [address] CMPon 07-17-2017 Alanine aminotransferase (ALT) 16 Int._Unit/L Normal 10-40 [facility] Comment on above: Performed By: #### 2 228179 ####HORACE FzxTqar8563 [place] [address] Albumin 4.5 g/dL Normal 3.2-5.0 [facility] Comment on above: Performed By: #### 2 752012 ####HORACE FgcUqjw6044 [place] [address] Albumin/Globulin Ratio 1.6 {ratio} Normal 1.1-1.9 [facility] Comment on above: Performed By: #### 2 999262 ####HORACE JafRaqe6992 [place] [address] Alk Phos 43 Int._Unit/L Normal 42-121 [facility] Comment on above: Performed By: #### 2 486611 ####HORACE ZppDiqr9412 [place] [address] Aspartate aminotransferase (AST) 16 Int._Unit/L Normal 10-42 [facility] Comment on above: Performed By: #### 2 400746 ####HORACEDenae ArcePilRlwt4263 [place] [address] Bili Total 0.4 mg/dL Normal 0.2-1.0 [facility] Comment on above: Performed By: #### 2 684011 ####HORACE VonRwdo5131 [place] [address] BUN/Creatinine Ratio 8.2 ratio Normal 5.4-30.0 [facility] Comment on above: Performed By: #### 2 932310 ####HORACEDenae ArceUafLzuv1676 [place] [address] Creatinine 1.1 mg/dL Normal 0.6-1.3 [facility] Comment on above: Performed By: #### 2 614612 ####HORACE NklPbip1842 [place] [address] Globulin 2.8 g/dL Normal 2.0-4.0 [facility] Comment on above: Performed By: #### 2 742969 ####HORACE MtdLfus1936 [place] [address] Protein 7.3 g/dL Normal 6.4-8.3 [facility] Comment on above: Performed By: #### 2 622616 ####HORACE OimPwrj1461 [place] [address] Urea nitrogen 9 mg/dL Normal 7-18 [facility] Comment on above: Performed By: #### 2 060689 ####HORACE VpoIpuh6025 [place] [address] Calcium 9.6 mg/dL Normal 8.4-10.2 [facility] Comment on above: Performed By: #### 2 030217 ####HORACE ZorCerd4096 [place] [address] Chloride 105 mmol/L Normal 98-107 [facility] Comment on above: Performed By: #### 2 876403 ####HROACE DtkWspr6770 [place] [address] CO2 28.7 mmol/L Normal 24.0-30.0 [facility] Comment on above: Performed By: #### 2 510230 ####HORACE RzcDcdl0847 [place] [address] Glucose mass conc 98 mg/dL Normal 70-99 [facility] Comment on above: Performed By: #### 2 095957 ####HORACE NotTkrw1762 [place] [address] Potassium molar conc 3.6 mmol/L Normal 3.5-5.1 [facility] Comment on above: Performed By: #### 2 511647 ####HORACE MmnMnue6618 [place] [address] Sodium 141 mmol/L Normal 136-145 [facility] Comment on above: Performed By: #### 2 899851 ####HORACE XywLguc4522 [place] [address] Lipase Levelon 07-17-2017 Lipase Lvl 22 U/L Normal 8-57 [facility] Comment on above: Performed By: #### 2 829419 ####HORACE QyrQnag0260 [place] [address] UA Completeon 07-17-2017 UA Blood Negative Normal Negative [facility] Comment on above: Performed By: #### 8 [id number] ####HORACE Urinalysis Automated Empnuwyuqs3926 [place] 3615405 UA Clarity Clear Normal Clear [facility] Comment on above: Performed By: #### 8 9773085 ####HORACE Urinalysis Automated [address] [place] [address] UA Leuk Est Negative Normal Negative [facility] Comment on above: Performed By: #### 8 3575440 ####HORACE Urinalysis Automated [address] [place] [address] UA Nitrite Negative Normal Negative [facility] Comment on above: Performed By: #### 8 6980253 ####HORACE Urinalysis Automated Onteupbsnb[address] [place] [address] UA pH 6.0 Normal 4.6-8.0 [facility] Comment on above: Performed By: #### 8 4872157 ####HORACE Urinalysis Automated Zzw[address]cklj[address] [place] [address] UA Protein Negative Normal Negative [facility] Comment on above: Performed By: #### 8 7355419 ####HORACE Urinalysis Automated Kjifidoqzi1575 [place] [address] UA Spec Grav 1.003 Normal 1.003-1.030 [facility] Comment on above: Performed By: #### 8 9634059 ####HORACE Urinalysis Automated Q[address]rub[address]eyng[address] [place], [place] [id number] UA Urobilinogen Negative Normal [facility] Comment on above: Performed By: #### 8 5921659 ####HORACE Urinalysis Automated Qeulwgmnpf[address] [place], [place] [address] UA WBC 0-5 Normal 0-5 [facility] Comment on above: Performed By: #### 8 5028614 ####HORACE Urinalysis Automated Hztcgxzkey0247 [place] [address] Urine, color Straw Normal Yellow [facility] Comment on above: Performed By: #### 8 7286189 ####HORACE Urinalysis Automated Snhrgpwljl8069 [place] [address] Urine, erythrocytes 0-3 Normal 0-[address] [facility] Comment on above: Performed By: #### 8 5566395 ####HORACE Urinalysis Automated Hbigxesdhd4687 [place] [address] Urine, glucose Negative Normal Negative [facility] Comment on above: Performed By: #### 8 0803535 ####HORACE Urinalysis Automated Bemtoxdjfo9746 [place] [address] Urine, ketones presence Negative Normal Negative [facility] Comment on above: Performed By: #### 8 3996964 ####HORACE Urinalysis Automated Wvjkmblotk4158 [place] [address] Urine, urobilinogen Negative Normal Negative [facility] Comment on above: Performed By: #### 8 7968040 ####HORACE Urinalysis Automated Duvgxfhuep9122 [place] [address] XR Abdomen APon 07-17-2017 INR Coag RelTime (Bld) Exam Date/Time:07/17/2017 14:36 EDTReason for Exam:Abdominal painReportABDOMEN AP supine (2 images) 07/17/2017CLINICAL INDICATION: Abdominal painSurgical clips are seen in the right upper quadrant. Bowel gas pattern looksnonobstructive. No abnormal mass or organomegaly is identified. Radiopaquedensities in the projection of the epigastrium are presumed to be extraneous tothe patientIMPRESSION: Nonobstructive bowel gas pattern FINAL REPORT Dictated: 07/17/2017 4:45 pm Mami Marvin MDSigned (Electronic Signature): 07/17/2017 4:45 pmSigned by: Mami Marvin MD Technologist: HLR Normal [facility] eGFRon 07-17-2017 eGFR (non-black) mL/min/{1.73_m2} Normal [facility] Comment on above: Order Comment: Order added by Discern Expert. Performed By: #### 1 [id number] ####HORACE ZbgNgqn9702 [place] [id number] [facility] Note on 06-27-2017 [facility] Note Normal [facility] Patient Summary Documentson 06-18-2017 Patient Summary Documents Normal [facility] Vital Signs Date Time Vital Sign Value Performing Clinician Facility 08-28-2017 12:56-0400 BMI (Body Mass Index) 23.99 kg/m2 Dangelo Marks MD [facility] [employer] Work Phone: 08-28-2017 12:56-0400 BP Diastolic 78 mm[Hg] Dangelo Marks MD [facility] [employer] Work Phone: 08-28-2017 12:56-0400 BP Systolic 119 mm[Hg] Dangelo Marks MD [facility] [employer] Work Phone: 08-28-2017 12:56-0400 Height 180.34 cm Dangelo Marks MD [facility] [employer] Work Phone: 08-28-2017 12:56-0400 Pulse (Heart Rate) 73 /min Dangelo Marks MD [facility] [employer] Work Phone: 08-28-2017 12:56-0400 Respiratory Rate 16 /min Dangelo Marks MD [facility] [employer] Work Phone: 08-28-2017 12:56-0400 Weight 78.02 kg Dangelo Marks MD [facility] [employer] Work Phone: Encounters Encounter Date Encounter Type Care Provider Facility Start: 12-22-2024 End: 12-23-2024 Emergency department [facility] Start: 02-02-2018 End: 02-02-2018 Emergency department patient visit [facility] Facility:[facility] Start: 11-15-2017 End: 11-15-2017 Emergency department patient visit [facility] Facility:[facility] Start: 09-18-2017 End: 09-18-2017 Ambulatory Jitendra Verdugo Facility:Jitendra Verdugo DO Start: 09-07-2017 End: 09-07-2017 Emergency department patient visit [facility] Facility:[facility] Start: 08-27-2017 End: 08-28-2017 Ambulatory [facility] Facility:[facility] Start: 08-25-2017 Ambulatory [facility]ility:[facility] Start: 08-15-2017 End: 08-16-2017 Ambulatory [facility] Facility:[facility] Start: 08-15-2017 End: 08-16-2017 Ambulatory Daxa Schwab Facility:[facility] Start: 07-24-2017 End: 07-25-2017 Ambulatory [facility] Facility:[facility] Start: 07-24-2017 End: 07-25-2017 Ambulatory [facility] Facility:[facility] Start: 07-17-2017 End: 07-18-2017 Ambulatory [facility] Facility:[facility] Start: 07-17-2017 End: 07-17-2017 Emergency department patient visit Jon Cleary Nazario Facility:[facility] Start: 06-18-2017 End: 06-18-2017 Emergency department patient visit TRISH Mcneil JEREDFAHAD Facility:B Plan of Treatment Date Care Activity Detail Author Start: 09-12-2017 End: 09-12-2017 Appointment Appointment [facility] Work Phone: Start: 08-28-2017 End: 08-28-2017 Egd transoral biopsy single/multiple Upper gastrointestinal endoscopy; with biopsy [facility] Work Phone: Payers Date Payer Category Payer Unknown 2017 Self-pay Clinical Note 12-23-2024 Note Date & Type Note Facility 12-23-2024 Note Discharge Instructio ns Discharge Summary [facility] [address] [place] [address] [phone] 12/22/2024 Patient: SU LOVING Sex: Male : 1995 Age: 29y Thank you for visiting [facility]. You have been evaluated today by Kinsey Mazariegos D.O. for the following condition(s): Principal Diagnosis Moderate dental pain. Dental caries. (Dental infection.). INSTRUCTIONS Follow a soft diet. (Follow up with a dentist as soon as possible.). Warnings: GENERAL WARNINGS: Return or contact your physician immediately if your condition worsens or changes unexpectedly, if not improving as expected, or if other problems arise. Prescription Medications: tramadol 50 mg tablet: Take 1 tablet by mouth every six hours as needed for pain for 3 days, dispense 12 tablet. Refills 0. Pharmacy: [facility] [id number] [place] [address]. penicillin V potassium 500 mg tablet: Take 1 tablet by mouth every six hours for 10 days, dispense 40 tablet. Refills 0. Pharmacy: [facility] [phone] [place] [address]. 1 of 7 Discharge Instructions Follow-up: Follow up with doctor in five days. Reason for referral: evaluation and treatment. Summary of care provided to patient and family. [facility], [address] [place] [address]. . You have been given the following additional information: Dental Pain Dental Cavity Patient Signature Facility Photo Printer Date/Time General Instructions with ExitWriter [address] [place] [address] [phone] 12/22/2024 Patient: SU LOVING Sex: Male : 1995 Age: 29y Thank you for visiting [facility]. You have been evaluated today by Kinsey Mazariegos D.O. for the following condition(s): Principal Diagnosis Moderate dental pain. Dental caries. (Dental infection.). INSTRUCTIONS 2 of 7 Discharge Instructions Follow a soft diet. (Follow up with a dentist as soon as possible.). Warnings: GENERAL WARNINGS: Return or contact your physician immediately if your condition worsens or changes unexpectedly, if not improving as expected, or if other problems arise. Prescription Medications: tramadol 50 mg tablet: Take 1 tablet by mouth every six hours as needed for pain for 3 days, dispense 12 tablet. Refills 0. Pharm[facility] [facility] [id number] [place] [address]. penicillin V potassium 500 mg tablet: Take 1 tablet by mouth every six hours for 10 days, dispense 40 tablet. Refills 0. Pharmacy: [facility] [id number] [place] [address]. Follow-up: Follow up with doctor in five days. Reason for referral: evaluation and treatment. Summary of care provided to patient and family. [facility], [address] [place] [address]. . ADDITIONAL INFORMATION 3 of 7 Discharge Instructions Dental Pain A crack or cavity in a tooth can cause tooth pain. This is because the crack or cavity exposes the sensitive inner area of the tooth. An infection in the gum or the tooth's root can cause pain and swelling. The pain is often made worse when you have a hot or cold drink. It can also be worse when you bite on hard foods. Pain may spread from the tooth to your ear, or to the part of the jaw on the same side. Home care Follow these tips when caring for yourself at home: Don't have hot and cold foods and drinks. Your tooth may be sensitive to changes in temperature. Use toothpaste made for sensitive teeth. [place] gently up and down instead of sideways. Brushing sideways can wear away root surfaces if they are exposed. If your tooth is chipped or cracked, see a dentist right away. For short-term pain relief, put clove oil right on the tooth. You can buy clove oil at pharmacies. Some pharmacies carry an [id number]-[id number] toothache kit. This has a paste you can put on the exposed tooth to make it less sensitive. Use a cold pack. Put a cold pack on your jaw over the sore area to help reduce pain. Ask your healthcare provider about using lsob-owm-ofxargs medicine for pain. You may use this unless your provider prescribed another medicine. If you have long-term (chronic) liver or kidney disease, talk with 4 of 7 Discharge Instructions your provider before using acetaminophen or ibuprofen. Also talk with your provider if you've had a stomach ulcer or GI (gastrointestinal) bleeding. Be aware of infection. If you have signs of an infection, you will be given an antibiotic. Take it as directed. Follow-up care Follow up with your dentist (more content not included)... [facility] Family History No Family History Records FoundNo Family History Records FoundNo Family History Records FoundNo Family History Records FoundNo Family History Records Found Advance Directives No Advanced Directives Records FoundNo Advanced Directives Records FoundNo Advanced Directives Records FoundNo Advanced Directives Records FoundNo Advanced Directives Records Found Additional Source Comments (unrecognized sect ion and content) No Status Records FoundNo Status Records FoundNo Status Records FoundNo Status Records FoundNo Status Records Found INFORMATION SOURCE (unrecogn ized section and content) DATE CREATED AUTHOR 05/13/2018 [facility]) DATE CREATED AUTHOR AUTHOR'S ORGANIZ ATION 05/21/2018 [facility] DATE CREATED AUTHOR AUTHOR'S ORGANIZ ATION 11/29/2019 [facility] DATE CREATED AUTHOR AUTHOR'S ORGANIZ ATION 12/16/2021 [facility] DATE CREATED AUTHOR AUTHOR'S ORGANIZ ATION 12/25/2024 [facility] FOR RECORDS PERTAINING TO PATIENTS WHO ARE OR HAVE BEEN ENROLLED IN A CHEMICAL DEPENDENCY/SUBSTANCEABUSE PROGRAM, SOME INFORMATION MAY BE OMITTED. This clinical summary was aggregated from multiple sources. Caution should be exercised in using it in the provision of clinical care. This summary normalizes information from multiple sources, and as a consequence, information in this document may materially change the coding, format and clinical context of patient data. In addition, data may be omitted in some cases. CLINICAL DECISIONS SHOULD BE BASED ON THE PRIMARY CLINICAL RECORDS. [employer] provides no warranty or guarantee of the accuracy or completeness of information in this document.
[2025-08-06 21:03] VITALS: BP 150/102; PULSE 74; RESP 18; O2SAT 98
[2025-08-06 22:00] VITALS: BP 149/99; RESP 18; O2SAT 98
--- NOTE | 2025-08-06 22:11 | ED.VIS.STROK ---
HPI History of Present Illness Chief Complaint: Neuro S/Sx Detail of Chief Complaint: Facial numbness including forehead, left jaw pain Informant: patient Onset/Context/Timing Onset: Hours Context: Sudden Onset Timing: Continuous Quality and Location: Positive for Left Face Parasthesia; Negative for Right Facial Droop, Left Facial Droop, Right Face Paresthesia, Right Arm Parasthesia, Left Arm Parasthesia, Right Leg Parasthesia, Left Leg Parasthesia, Right Arm Weakness, Left Arm Weakness, Right Leg Weakness, Left Leg Weakness, Slurred Speech, Expressive Aphasia, Receptive Aphasia or Difficulty with Ambulation Onset: Couple hours before presentation Current Severity: Mild Maximum Severity: Mild Worsened by: Nothing Relieved by: Nothing Associated Symptoms Associated Symptoms: Positive for - (Left-sided jaw pain without teeth pain. Also pain over the left maxillary region); Negative for Headache, Nausea, Vomiting or Chest Pain Narrative Narrative: Patient is a 30-year-old male. He has no history of hepatitis or HIV. He is in a monogamous race with his partner. He denies double vision, blurred vision loss of vision. He denies headache. He denies ear pain. He denies dental pain. He denies congestion, runny nose postnasal drainage. He denies trouble with speech or swallowing. He denies cardiac respiratory symptoms. He denies abdominal pain, nausea, vomiting or diarrhea. He denies paresthesia, anesthesia or motor weakness upper or lower extremity. Denies trouble with balance or coordination. Prior similar symptoms: No Recent Illness/Hospitalization: No PFSH PFSH Home Medications ?Medication ?Instructions ?Recorded ?Last Taken ?Type famciclovir 500 mg tablet 500 mg PO Q8H #21 tabs 08/06/25 Unknown Rx prednisone 20 mg tablet 60 mg (3 x 20 mg) PO DAILY #15 08/06/25 Unknown Rx TABLETS Allergy/AdvReac Type Severity Reaction Status Date / Time fluoxetine (From Prozac) Allergy Hives Verified 08/06/25 19:41 Iodinated Contrast Media Allergy Hives Verified 08/06/25 19:41 (DYEE) escitalopram (From Lexapro) AdvReac Other Verified 08/06/25 19:41 Surgical History Status post laparoscopic cholecystectomy S/P appendectomy Social History household members: significant other Smoking Status: Current every day smoker tobacco type: cigarettes alcohol intake: current alcohol intake frequency: other substance use type: does not use ROS ROS ED Constitutional Constitutional ED: Denies chills, fever(s), subjective, sweats or weakness Eyes Eyes: Denies blurry vision, change in vision or diplopia ENT ENT ED: Denies ear pain, rhinorrhea or sore throat Cardiovascular Cardiovascular: Denies chest pain, palpitations, paroxysmal nocturnal dyspnea or racing heartbeat Respiratory/Chest Respiratory/Chest: Denies cough, dyspnea, dyspnea on exertion or paroxysmal nocturnal dyspnea Gastrointestinal Gastrointestinal: Denies abdominal pain, constipation, diarrhea, melena, nausea or vomiting Genitourinary Genitourinary ED: Denies dysuria, hematuria or urinary frequency Musculoskeletal Musculoskeletal: Denies arthralgias, back pain, myalgias or neck pain Integumentary Denies rash Neurologic Neurologic: Reports paresthesias; Denies headache(s) or weakness Psychiatric Psychiatric: Denies anxiety or depression Endocrine Endocrinology: Denies polydipsia, polyphagia or polyuria Hematologic/Lymphatic Hematologic/Lymphatic: Denies easy bleeding or easy bruising EXAM Physical Exam Const Vital Signs: 08/06/25 19:38 08/06/25 21:03 Temperature 97.9 F Temperature Source Oral Pulse Rate 90 74 Respiratory Rate 16 18 Blood Pressure 163/94 H 150/102 H Blood Pressure Mean 117 118 Pulse Ox 100 98 Oxygen Delivery Method Room Air Room Air Positive well nourished and well developed Constitutional Narrative: There is no mucosal lesions noted. There is no tenderness of his teeth. There is no trismus. Posterior pharynx is normal. General Appearance ED: well developed and NAD HEENT Reports TM's clear and moist mucous membranes atraumatic Tympanic Membrane ED: Yes TM's clear bilateral (TMs are normal. External auditory canals normal with no evidence of any lesions to suggest Lulu Gu syndrome.) Eyes PERRL and EOMs intact bilaterally Eyes Narrative: There is no nystagmus. There is no visual field cut. General Eye ED: Negative for pale conjunctiva or scleral icterus Neck no lymphadenopathy, supple and no JVD Neck Narrative: There are no carotid bruits. Chest Wall inspection of chest normal and palpation of chest normal Resp normal respiratory effort and clear to auscultation bilaterally Cardio no murmurs Rate: regular rate Rhythm: regular rhythm Heart Sounds: S1 normal and S2 normal GI normal to inspection, nondistended, normoactive bowel sounds, soft to palpation, non-tender, non-distended and no masses Extremity normal to inspection Neuro oriented x3, CN's II-XII intact bilaterally and no sensory deficits noted Neuro Narrative: No dysmetria. Romberg is negative. Gait was normal. Tandem gait was normal. There is no clonus or Babinski sign noted, bilaterally Sensorium / Orientation: alert Speech: speech normal Gait (Neuro): normal gait Motor Exam: strength 5/5 throughout Psych mental status grossly normal Skin no wounds General Skin Exam: Negative for jaundice Lesions: no lesions Rashes: no rashes MDM MDM MDM Narrative Medical decision making narrative: Since he [place] [facility] has 2 dogs that go out Lyme titer was obtained. There is no findings to suggest Lulu Gu syndrome at this point. Also need to consider Mc's palsy, early. In light of his past medical history CT was obtained as well as appropriate blood work. If patient's Lyme titer returns positive he will need to be treated for 3 to 6 weeks with doxycycline 100 mg twice daily. Lab Data Attestation: I reviewed the patient's lab results. Lab results narrative: CBC is unremarkable. Labs: Laboratory Results - last 24 hr 08/06/25 20:20 WBC 8.2 RBC 4.55 L Hgb 14.8 Hct 43.3 MCV 95.2 H MCH 32.5 H MCHC 34.2 RDW Std Deviation 41.1 RDW Coeff of Nubia 11.9 Plt Count 225 MPV 10.6 Immature Gran % (Auto) 0.400 Neut % (Auto) 70.1 H Lymph % (Auto) 19.1 [place] % (Auto) 9.0 Eos % (Auto) 0.7 Baso % (Auto) 0.7 Absolute Neuts (auto) 5.8 Absolute Lymphs (auto) 1.57 Nucleated RBC % 0 Radiography Diagnostic Testing: Clinical Impression(s) from Imaging Studies Brain CT 08/06/25 19:42 IMPRESSION: Unremarkable head CT. Reading Location: [facility] Read the radiology report. Treatment and Re-Evaluation Narrative: Will treat patient with prednisone and acyclovir. Discharge Plan Triage Chief Complaint: Neuro S/Sx ED Provider: Pantera Jung Dx/Rx/DC Orders Clinical Impression: Facial paresthesia Instructions: ED Mc's Palsy Prescriptions: New prednisone 20 mg tablet 60 mg PO DAILY Qty: 15 0RF famciclovir 500 mg tablet 500 mg PO Q8H Qty: 21 0RF Primary Care Provider: Care Physician,No Primary Referrals: Care Physician,No Primary [Primary Care Provider, Medical] Activity Restrictions/Additional Instructions: If you are unable to close your eye completely you will need to tape it shut at night. Also, you will need to instill 1 to 2 drops of artificial tears every 1-2 hours while awake Take medication as prescribed until gone Print Language: Belarusian Disposition Disposition: Home, Self Care NIHSS NIHSS 1a. Level of Consciousness: 0 - Alert; keenly responsive 1b. LOC Questions: 0 - Answers BOTH questions correctly 1c. LOC Commands: 0 - Performs BOTH tasks correctly 2. Best Gaze: 0 - Normal 3. Visual: 0 - No visual loss 4. Facial Palsy: 0 - Normal symmetrical movements 5a. Left Arm: 0 - No drift; arm holds 90 (or 45) degrees for full 10 seconds 5b. Right Arm: 0 - No drift; arm holds 90 (or 45) degrees for full 10 seconds 6a. Left Le - No drift; leg holds 30-degree position for full 5 seconds 6b. Right Le - No drift; leg holds 30-degree position for full 5 seconds 7. Limb Ataxia: 0 - Absent 8. Sensory: 1 - Sdaz-kv-skaxehds sensory loss; (Left side of the face including the forehead there is no problems opening closing his eyes. There is no facial droop) 9. Best Language: 0 - No aphasia; normal 10. Dysarthria: 0 - Normal 11. Extinction and Inattention: 0 - No abnormality Total: 1 Stroke Questions Stroke Team Activated: No (With forehead involvement suspect this is early Mc's palsy.)
[2025-08-06 22:23] VITALS: BP 149/99; PULSE 70; RESP 18; TEMP 36.7; O2SAT 98
[2025-08-06 22:24] VITALS: BMI 28.9
[2025-08-09 08:09] LABS: Lyme Scn Total Ab w/Rflx Negative (Negative)
== END 2025-08-06 22:31 | disposition home or self-care (01) ==
PROVIDERS: Emergency Provider Emergency Medicine; Visit Provider Emergency Medicine
DX: R20.2 Paresthesia of skin (principal); F17.210 Nicotine dependence, cigarettes, uncomplicated; R68.84 Jaw pain; Z90.49 Acquired absence of other specified parts of digestive tract
CPT/HCPCS: 70450; 85025; 86618; 99282; A4216